=== PATIENT | female | born 1955 | race Caucasian/White ===

== ENCOUNTER 2020-07-26 13:04 | Outpatient (REF) | payer MEDICAID, SELFPAY ==
--- NOTE | 2020-07-26 13:21 | XR_ITS ---
EXAMINATION: BILATERAL HAND AND RIGHT SHOULDER. CLINICAL INFORMATION: Pain and bilateral hand. COMPARISON: None TECHNIQUE: 3 views each hand. 2 views right shoulder FINDINGS: Right hand: There is no visible fracture, dislocation or subluxation. Mild loss of PIP and DIP joint space is seen. No bony erosive changes. The soft tissues unremarkable. Left hand: There is no visible acute fracture, dislocation or subluxation is mild loss of PIP and DIP joint space. No bony erosive changes. The soft tissues are unremarkable. Right shoulder: There is mild loss of glenohumeral and AC joint space. No visible acute fracture, dislocation or loose body seen. Normal erosive changes. The lateral acromial enthesophyte. No calcifications seen. XR/XR hand RT 2V IMPRESSION: Early osteoarthritic changes involving both hands. No visible fracture or dislocation seen. Mild degenerative osteoarthritis right shoulder. No acute fracture or dislocation.
--- NOTE | 2020-07-26 13:25 | XR_ITS ---
EXAMINATION: BILATERAL HAND AND RIGHT SHOULDER. CLINICAL INFORMATION: Pain and bilateral hand. COMPARISON: None TECHNIQUE: 3 views each hand. 2 views right shoulder FINDINGS: Right hand: There is no visible fracture, dislocation or subluxation. Mild loss of PIP and DIP joint space is seen. No bony erosive changes. The soft tissues unremarkable. Left hand: There is no visible acute fracture, dislocation or subluxation is mild loss of PIP and DIP joint space. No bony erosive changes. The soft tissues are unremarkable. Right shoulder: There is mild loss of glenohumeral and AC joint space. No visible acute fracture, dislocation or loose body seen. Normal erosive changes. The lateral acromial enthesophyte. No calcifications seen. XR/XR shoulder RT min 2V IMPRESSION: Early osteoarthritic changes involving both hands. No visible fracture or dislocation seen. Mild degenerative osteoarthritis right shoulder. No acute fracture or dislocation.
--- NOTE | 2020-07-26 13:26 | XR_ITS ---
EXAMINATION: BILATERAL HAND AND RIGHT SHOULDER. CLINICAL INFORMATION: Pain and bilateral hand. COMPARISON: None TECHNIQUE: 3 views each hand. 2 views right shoulder FINDINGS: Right hand: There is no visible fracture, dislocation or subluxation. Mild loss of PIP and DIP joint space is seen. No bony erosive changes. The soft tissues unremarkable. Left hand: There is no visible acute fracture, dislocation or subluxation is mild loss of PIP and DIP joint space. No bony erosive changes. The soft tissues are unremarkable. Right shoulder: There is mild loss of glenohumeral and AC joint space. No visible acute fracture, dislocation or loose body seen. Normal erosive changes. The lateral acromial enthesophyte. No calcifications seen. XR/XR hand LT min 3V IMPRESSION: Early osteoarthritic changes involving both hands. No visible fracture or dislocation seen. Mild degenerative osteoarthritis right shoulder. No acute fracture or dislocation.
== END 2020-07-26 13:05 | disposition home or self-care (01) ==
LOC: HO.XRAY 13:04
PROVIDERS: PCP Internal Medicine Geriatric Medicine; Visit Provider Internal Medicine Geriatric Medicine
DX: M25.511 Pain in right shoulder (principal); M79.641 Pain in right hand; M79.642 Pain in left hand
CPT/HCPCS: 73030; 73120; 73130

== ENCOUNTER 2020-07-26 14:05 | Outpatient (REF) | payer MEDICAID, SELFPAY | END 2020-07-26 14:06 | disposition home or self-care (01) | LOC: HO.LAB 14:05 | PROVIDERS: PCP Internal Medicine Geriatric Medicine; Visit Provider Internal Medicine | DX: Z20.828 Contact with and (suspected) exposure to other viral communicable diseases (principal) | CPT/HCPCS: 87635 ==

== ENCOUNTER 2020-09-21 14:02 | Outpatient (REF) | payer MEDICAID, SELFPAY | END 2020-09-21 14:03 | disposition home or self-care (01) | LOC: HO.LAB 14:02 | PROVIDERS: PCP Internal Medicine Geriatric Medicine; Visit Provider Internal Medicine | DX: Z20.828 Contact with and (suspected) exposure to other viral communicable diseases (principal) | CPT/HCPCS: C9803; U0003 ==

== ENCOUNTER 2020-11-11 12:50 | Outpatient (REF) | payer MEDICAID, SELFPAY ==
--- NOTE | ~2020-11-11 | XR_ITS ---
EXAMINATION: XR SOFT TISSUE NECK XR CERVICAL SPINE XR SHOULDER, LEFT CLINICAL INFORMATION: Pain. COMPARISON: Cervical spine 07/18/2018 TECHNIQUE: Cervical spine 6 views, left shoulder 3 views, and soft tissue neck 2 views. FINDINGS: LEFT SHOULDER: There is no visible acute fracture, dislocation or subluxation. There is inferior and lateral acromial enthesophyte. The AC joint is normal. There is mild reduction of the glenohumeral joint space with slight irregular-appearing glenoid surface. The soft tissues are normal. CERVICAL SPINE: There is mild straightening of the cervical lordosis. Loss of C4-C5, C5-C6 and C6-C7 disc heights with moderate ventral spondylosis is noted. Bilateral narrowing of C4-C5, C5-C6 and C6-C7 neural foramina, slightly greater on the left, is noted. No fracture or dislocation seen. SOFT TISSUE NECK: The airway is widely patent. The prevertebral and paravertebral soft tissues are normal. No soft tissue mass seen. XR/XR shoulder LT min 2V IMPRESSION: Mild degenerative changes left shoulder joint. No visible acute fracture or dislocation. Degenerative disc changes with moderate ventral and mild posterior spondylosis C4-C5, C5-C6 and C6-C7 disc levels. There is bilateral narrowing of the neural foramina, as described above. Unremarkable soft tissue neck.
--- NOTE | ~2020-11-11 | XR_ITS ---
EXAMINATION: XR SOFT TISSUE NECK XR CERVICAL SPINE XR SHOULDER, LEFT CLINICAL INFORMATION: Pain. COMPARISON: Cervical spine 07/18/2018 TECHNIQUE: Cervical spine 6 views, left shoulder 3 views, and soft tissue neck 2 views. FINDINGS: LEFT SHOULDER: There is no visible acute fracture, dislocation or subluxation. There is inferior and lateral acromial enthesophyte. The AC joint is normal. There is mild reduction of the glenohumeral joint space with slight irregular-appearing glenoid surface. The soft tissues are normal. CERVICAL SPINE: There is mild straightening of the cervical lordosis. Loss of C4-C5, C5-C6 and C6-C7 disc heights with moderate ventral spondylosis is noted. Bilateral narrowing of C4-C5, C5-C6 and C6-C7 neural foramina, slightly greater on the left, is noted. No fracture or dislocation seen. SOFT TISSUE NECK: The airway is widely patent. The prevertebral and paravertebral soft tissues are normal. No soft tissue mass seen. XR/XR soft tissue neck IMPRESSION: Mild degenerative changes left shoulder joint. No visible acute fracture or dislocation. Degenerative disc changes with moderate ventral and mild posterior spondylosis C4-C5, C5-C6 and C6-C7 disc levels. There is bilateral narrowing of the neural foramina, as described above. Unremarkable soft tissue neck.
--- NOTE | ~2020-11-11 | XR_ITS ---
EXAMINATION: XR SOFT TISSUE NECK XR CERVICAL SPINE XR SHOULDER, LEFT CLINICAL INFORMATION: Pain. COMPARISON: Cervical spine 07/18/2018 TECHNIQUE: Cervical spine 6 views, left shoulder 3 views, and soft tissue neck 2 views. FINDINGS: LEFT SHOULDER: There is no visible acute fracture, dislocation or subluxation. There is inferior and lateral acromial enthesophyte. The AC joint is normal. There is mild reduction of the glenohumeral joint space with slight irregular-appearing glenoid surface. The soft tissues are normal. CERVICAL SPINE: There is mild straightening of the cervical lordosis. Loss of C4-C5, C5-C6 and C6-C7 disc heights with moderate ventral spondylosis is noted. Bilateral narrowing of C4-C5, C5-C6 and C6-C7 neural foramina, slightly greater on the left, is noted. No fracture or dislocation seen. SOFT TISSUE NECK: The airway is widely patent. The prevertebral and paravertebral soft tissues are normal. No soft tissue mass seen. XR/XR cervical spine 4V IMPRESSION: Mild degenerative changes left shoulder joint. No visible acute fracture or dislocation. Degenerative disc changes with moderate ventral and mild posterior spondylosis C4-C5, C5-C6 and C6-C7 disc levels. There is bilateral narrowing of the neural foramina, as described above. Unremarkable soft tissue neck.
== END 2020-11-11 12:51 | disposition home or self-care (01) ==
LOC: HO.XRAY 12:50
PROVIDERS: PCP Internal Medicine Geriatric Medicine; Visit Provider Registered Nurse
DX: M25.512 Pain in left shoulder (principal); M54.2 Cervicalgia
CPT/HCPCS: 70360; 72050; 73030

== ENCOUNTER 2020-12-08 11:20 | Outpatient (REF) | payer MEDICAID, SELFPAY ==
--- NOTE | ~2020-12-08 | MM_ITS ---
EXAMINATION: MM SCREENING DIGITAL BREAST TOMOSYNTHESIS, LEFT CLINICAL INFORMATION: Right mastectomy 2019. Left implant between 2017 and 12/23/2018. Due for yearly. COMPARISON: Outside mammography 12/23/2018, 11/08/2017 [facility], mammography 01/23/2016 TECHNIQUE: Digital mammography is performed in craniocaudal and mediolateral oblique views along with computer-aided detection (CAD). Digital breast tomosynthesis is performed in implant-displaced craniocaudal and implant-displaced mediolateral oblique views along with computer-aided detection (CAD). Synthesized 2D images are generated from the tomosynthesis. FINDINGS: There are scattered areas of fibroglandular density (ACR BI-RADS breast composition Category b). There are no significant masses, abnormal calcifications, or other abnormalities. Parenchymal pattern is similar to prior exam. The implant contours are smooth and similar to previous outside mammography. Left axillary nodes are stable. The skin contours are smooth. There are no significant changes. MM/MM tomosynthesis screen imp LT IMPRESSION: No mammographic evidence of malignancy. ASSESSMENT: BI-RADS 1: Negative RECOMMENDATION: Routine annual mammography screening. This patient's information was entered into a reminder system with a target due date for their next mammogram.
== END 2020-12-08 11:21 | disposition home or self-care (01) ==
LOC: HO.MAMMO 11:20
PROVIDERS: PCP Internal Medicine Geriatric Medicine; Visit Provider Internal Medicine Geriatric Medicine
DX: Z12.31 Encounter for screening mammogram for malignant neoplasm of breast (principal)
CPT/HCPCS: 77067

== ENCOUNTER 2021-01-05 12:42 | Outpatient (REF) | payer MEDICAID, SELFPAY ==
--- NOTE | ~2021-01-05 | MR_ITS ---
EXAMINATION: MRI LEFT SHOULDER WITHOUT CONTRAST CLINICAL INFORMATION: Left shoulder pain COMPARISON: Radiographs 11/11/2020 TECHNIQUE: MRI of the shoulder without contrast is performed on a 1.5 Helga high-field scanner. FINDINGS: ROTATOR CUFF: Supraspinatus tendinosis within insertional tear measuring 10 mm in AP dimension. The tear is predominantly along the articular surface, although there is a full-thickness component with a gap of 4 mm. No muscle atrophy or fatty infiltration. BICEPS: Normal. CORACOACROMIAL ARCH: The undersurface of the acromion is curved with mild lateral spurring and downsloping. Mild acromioclavicular osteoarthritis. Prominent fluid in the subacromial subdeltoid and subcoracoid bursa. LABRUM/CAPSULE: Normal. GLENOHUMERAL JOINT/MARROW: There is a moderate joint effusion. There is mild degenerative spurring along the greater tuberosity. ADDITIONAL FINDINGS: None. MR/MR shoulder LT wo con IMPRESSION: Supraspinatus tendinosis with insertional tearing measuring 10 mm in AP dimension, a portion of which is full-thickness with a 4 mm gap. Slight lateral downsloping of the acromion with a small lateral spur. Mild acromioclavicular and glenohumeral osteoarthritis. Moderate joint effusion and prominent fluid throughout the subacromial subdeltoid subcoracoid bursa.
== END 2021-01-05 12:43 | disposition home or self-care (01) ==
LOC: HO.MRI 12:42
PROVIDERS: Visit Provider Internal Medicine Geriatric Medicine
DX: R29.898 Other symptoms and signs involving the musculoskeletal system (principal)
CPT/HCPCS: 73221

== ENCOUNTER 2021-02-13 15:57 | Outpatient (REF) | payer MEDICAID, SELFPAY ==
--- NOTE | ~2021-02-13 | US_ITS ---
EXAMINATION: US VENOUS ULTRASOUND WITH DOPPLER LOWER EXTREMITY, LEFT CLINICAL INFORMATION: Chronic left leg swelling and pain COMPARISON: None TECHNIQUE: Ultrasound of the deep veins is performed from the hip to the calf with compression sonography and color and pulse Doppler assessment. Spectral analysis with color-flow imaging is performed. FINDINGS: There is normal venous compression and respiratory variation and augmented flow. The visualized common femoral vein, superficial femoral vein, profunda femoral vein, popliteal vein, and the trifurcation region shows no evidence of deep venous thrombosis. There is no significant popliteal fossa cyst. If the patient's symptoms persist, followup ultrasound in 5 days 7 days might be of value to exclude proximal propagation from a non-visualized calf vein. US/US venous duplex LE LT IMPRESSION: No DVT demonstrated in the left lower extremity.
== END 2021-02-13 15:58 | disposition home or self-care (01) ==
LOC: HO.US 15:57
PROVIDERS: PCP Internal Medicine Geriatric Medicine; Visit Provider Nurse Practitioner Family
DX: M79.89 Other specified soft tissue disorders (principal)
CPT/HCPCS: 93971

== ENCOUNTER 2021-09-25 12:54 | Outpatient (REF) | payer MEDICAID, SELFPAY | END 2021-09-25 12:55 | disposition home or self-care (01) | LOC: HO.LAB 12:54 | PROVIDERS: Visit Provider Internal Medicine | DX: Z20.822 Contact with and (suspected) exposure to COVID-19 (principal) | CPT/HCPCS: C9803; U0003; U0005 ==

== ENCOUNTER 2022-01-05 16:04 | Outpatient (REF) | payer MEDICAID, SELFPAY ==
--- NOTE | ~2022-01-05 | MM_ITS ---
EXAMINATION: MM SCREENING DIGITAL BREAST TOMOSYNTHESIS, LEFT CLINICAL INFORMATION: Screening. Asymptomatic. Right mastectomy 2019. Left implant between 2017 and 12/23/2018. COMPARISON: Mammography: 12/08/2020, 12/23/2018, 11/08/2017 TECHNIQUE: Digital mammography is performed in craniocaudal and mediolateral oblique views along with computer-aided detection (CAD). Digital breast tomosynthesis is performed in implant-displaced craniocaudal and implant-displaced mediolateral oblique views along with computer-aided detection (CAD). Synthesized 2D images are generated from the tomosynthesis. FINDINGS: There are scattered areas of fibroglandular density (ACR BI-RADS breast composition Category b). There are no significant masses, abnormal calcifications, or other abnormalities. Left implant contour is smooth. Parenchymal pattern is similar to prior studies. No significant changes. MM/MM tomosynthesis screen imp LT IMPRESSION: No mammographic evidence of malignancy. ASSESSMENT: BI-RADS 1: Negative RECOMMENDATION: Routine annual mammography screening. This patient's information was entered into a reminder system with a target due date for their next mammogram.
== END 2022-01-05 16:05 | disposition home or self-care (01) ==
LOC: HO.MAMMO 16:04
PROVIDERS: PCP Internal Medicine Geriatric Medicine; Visit Provider Internal Medicine Geriatric Medicine
DX: Z12.31 Encounter for screening mammogram for malignant neoplasm of breast (principal); Z90.11 Acquired absence of right breast and nipple
CPT/HCPCS: 77067

== ENCOUNTER 2022-01-09 14:29 | Outpatient (REF) | payer MEDICAID, SELFPAY ==
--- NOTE | ~2022-01-09 | XR_ITS ---
EXAMINATION: XR HAND, RIGHT XR HAND, LEFT CLINICAL INFORMATION: Other specified soft tissue disorders. COMPARISON: Right and left hand radiographs dated 07/26/2020. TECHNIQUE: AP, oblique, and lateral views of the right and left hand. FINDINGS: RIGHT HAND: Mild joint space narrowing with tiny marginal osteophytes scattered throughout the metacarpophalangeal and interphalangeal joints, slightly increased when compared to the prior examination. No osseous erosion. No fracture or dislocation. Normal carpal alignment. No abnormal soft tissue calcification. LEFT HAND: Mild joint space narrowing with tiny marginal osteophytes scattered throughout the metacarpophalangeal and interphalangeal joints, slightly increased when compared to the prior examination. No osseous erosion. No fracture or dislocation. Normal carpal alignment. No abnormal soft tissue calcification. XR/XR hand RT min 3V IMPRESSION: RIGHT HAND: Mild osteoarthritis scattered throughout the metacarpophalangeal and interphalangeal joints, slightly progressed. LEFT HAND: Mild osteoarthritis scattered throughout the metacarpophalangeal and interphalangeal joints, slightly progressed.
--- NOTE | ~2022-01-09 | XR_ITS ---
EXAMINATION: XR CHEST CLINICAL INFORMATION: Chronic cough. COMPARISON: Most recent chest radiograph dated 03/01/2017. TECHNIQUE: 2 views of the chest were obtained. FINDINGS: The lungs are clear. The cardiomediastinal silhouette is normal in size. There is no pleural effusion or pneumothorax. No acute osseous abnormality. XR/XR chest 2V IMPRESSION: No acute cardiopulmonary findings.
--- NOTE | ~2022-01-09 | XR_ITS ---
EXAMINATION: XR KNEE, RIGHT XR KNEE, LEFT CLINICAL INFORMATION: Right and left knee pain. COMPARISON: Right knee radiographs dated 12/19/2012. TECHNIQUE: AP, tunnel, lateral, and sunrise views of the right and left knee. FINDINGS: RIGHT KNEE: Mild medial compartment joint space narrowing. Tiny medial and patellofemoral compartment marginal osteophytes. No osseous erosion. No fracture or dislocation. No significant joint effusion. Enthesopathic spurring at the superior and inferior patella as well as at the tibial tuberosity. LEFT KNEE: Mild medial compartment joint space narrowing. Tiny patellofemoral compartment marginal osteophytes. No osseous erosion. No fracture or dislocation. No significant joint effusion. Inferior patellar enthesophytes. XR/XR knee LT 4V IMPRESSION: RIGHT KNEE: Mild medial and patellofemoral compartment osteoarthritis, slightly progressed when compared to the prior radiograph. LEFT KNEE: Mild medial and patellofemoral compartment osteoarthritis.
--- NOTE | ~2022-01-09 | XR_ITS ---
EXAMINATION: XR KNEE, RIGHT XR KNEE, LEFT CLINICAL INFORMATION: Right and left knee pain. COMPARISON: Right knee radiographs dated 12/19/2012. TECHNIQUE: AP, tunnel, lateral, and sunrise views of the right and left knee. FINDINGS: RIGHT KNEE: Mild medial compartment joint space narrowing. Tiny medial and patellofemoral compartment marginal osteophytes. No osseous erosion. No fracture or dislocation. No significant joint effusion. Enthesopathic spurring at the superior and inferior patella as well as at the tibial tuberosity. LEFT KNEE: Mild medial compartment joint space narrowing. Tiny patellofemoral compartment marginal osteophytes. No osseous erosion. No fracture or dislocation. No significant joint effusion. Inferior patellar enthesophytes. XR/XR knee RT 4V IMPRESSION: RIGHT KNEE: Mild medial and patellofemoral compartment osteoarthritis, slightly progressed when compared to the prior radiograph. LEFT KNEE: Mild medial and patellofemoral compartment osteoarthritis.
--- NOTE | ~2022-01-09 | XR_ITS ---
EXAMINATION: XR HAND, RIGHT XR HAND, LEFT CLINICAL INFORMATION: Other specified soft tissue disorders. COMPARISON: Right and left hand radiographs dated 07/26/2020. TECHNIQUE: AP, oblique, and lateral views of the right and left hand. FINDINGS: RIGHT HAND: Mild joint space narrowing with tiny marginal osteophytes scattered throughout the metacarpophalangeal and interphalangeal joints, slightly increased when compared to the prior examination. No osseous erosion. No fracture or dislocation. Normal carpal alignment. No abnormal soft tissue calcification. LEFT HAND: Mild joint space narrowing with tiny marginal osteophytes scattered throughout the metacarpophalangeal and interphalangeal joints, slightly increased when compared to the prior examination. No osseous erosion. No fracture or dislocation. Normal carpal alignment. No abnormal soft tissue calcification. XR/XR hand LT min 3V IMPRESSION: RIGHT HAND: Mild osteoarthritis scattered throughout the metacarpophalangeal and interphalangeal joints, slightly progressed. LEFT HAND: Mild osteoarthritis scattered throughout the metacarpophalangeal and interphalangeal joints, slightly progressed.
[2022-01-09 16:52] LABS: Alanine Aminotransferase 20 U/L (0-31); Albumin Level 4.4 g/dL (3.5-5.0); Alkaline Phosphatase 78 U/L (39-117); Anion Gap 12 (12-20); Aspartate Amino Transferase 16 U/L (5-31); Bilirubin Total 0.7 mg/dL (0.0-1.0); Blood Urea Nitrogen 19 mg/dL (9-16); Calcium 9.9 mg/dL (8.4-10.2); Carbon Dioxide 28 mmol/L (22-29); Chloride 103 mmol/L (96-108); Estimated Glomerular Filt Rate > 60; Glucose Random 90 mg/dL (60-115); Potassium 4.1 mmol/L (3.3-5.1); Sodium 139 mmol/L (135-145); Total Protein 7.7 g/dL (6.5-8.0)
== END 2022-01-09 14:30 | disposition home or self-care (01) ==
LOC: HO.LAB 14:29
PROVIDERS: PCP Internal Medicine Geriatric Medicine; Visit Provider Internal Medicine Geriatric Medicine
DX: M25.561 Pain in right knee (principal); M25.562 Pain in left knee; M79.89 Other specified soft tissue disorders; R05.3 Chronic cough; R79.82 Elevated C-reactive protein (CRP)
CPT/HCPCS: 36415; 71046; 73130; 73564; 80053

== ENCOUNTER 2022-05-11 15:38 | Outpatient (REF) | payer MEDICAID, SELFPAY ==
--- NOTE | ~2022-05-11 | XR_ITS ---
EXAMINATION: XR SHOULDER, RIGHT CLINICAL INFORMATION: Pain COMPARISON: Previous x-ray June 2020 TECHNIQUE: AP external rotation, Grashey, scapular Y, and axillary views of the right shoulder. FINDINGS: Bone alignment is normal. No fracture or dislocation is seen. The glenohumeral joint is normal. There is arthritis at the acromioclavicular joint. There is an undersurface acromial osteophyte. XR/XR shoulder RT min 2V IMPRESSION: Arthritis at the acromioclavicular joint and undersurface acromial osteophyte.
== END 2022-05-11 15:39 | disposition home or self-care (01) ==
LOC: HO.XRAY 15:38
PROVIDERS: PCP Internal Medicine Geriatric Medicine; Visit Provider Internal Medicine Geriatric Medicine
DX: M25.511 Pain in right shoulder (principal)
CPT/HCPCS: 73030

== ENCOUNTER 2023-02-18 14:26 | Outpatient (REF) | payer OTHER, SELFPAY | END 2023-02-18 14:27 | disposition home or self-care (01) | LOC: HO.MAMMO 14:26 | PROVIDERS: PCP Internal Medicine Geriatric Medicine; Visit Provider Internal Medicine Geriatric Medicine | DX: Z13.89 Encounter for screening for other disorder (principal) ==

== ENCOUNTER → 2023-03-21 14:05 | Outpatient (BNVA) | payer OTHER, SELFPAY | PROVIDERS: Visit Provider Physician Assistant | DX: Z01.818 Encounter for other preprocedural examination (principal) | CPT/HCPCS: 99202 ==

== ENCOUNTER 2023-03-23 10:18 | Outpatient (REF) | payer OTHER, SELFPAY ==
--- NOTE | ~2023-03-23 | MM_ITS ---
EXAMINATION: MM SCREENING DIGITAL BREAST TOMOSYNTHESIS, LEFT CLINICAL INFORMATION: Right mastectomy 2019. Due for yearly left breast. COMPARISON: Mammography: 01/05/2022, 12/08/2020, 12/23/2018 TECHNIQUE: Digital mammography is performed in craniocaudal and mediolateral oblique views along with computer-aided detection (CAD). Digital breast tomosynthesis is performed in implant-displaced craniocaudal and implant-displaced mediolateral oblique views along with computer-aided detection (CAD). Synthesized 2D images are generated from the tomosynthesis. FINDINGS: There are scattered areas of fibroglandular density (ACR BI-RADS breast composition Category b). Breast implant is smooth in contour and similar to prior exams. The parenchymal pattern shows no significant changes. No developing density or architectural abnormality. No abnormal calcifications. The left axillary nodes are stable. The skin contours are smooth. MM/MM tomosynthesis screen imp LT IMPRESSION: There are no significant changes from prior study. ASSESSMENT: BI-RADS 2: Benign RECOMMENDATION: Routine annual mammography screening. This patient's information was entered into a reminder system with a target due date for their next mammogram.
== END 2023-03-23 10:19 | disposition home or self-care (01) ==
LOC: HO.MAMMO 10:18
PROVIDERS: PCP Internal Medicine Geriatric Medicine; Visit Provider Internal Medicine Geriatric Medicine
DX: Z12.31 Encounter for screening mammogram for malignant neoplasm of breast (principal)
CPT/HCPCS: 77067

== ENCOUNTER 2023-05-29 08:59 | Outpatient (REF) | payer OTHER, SELFPAY ==
[2023-05-29 11:30] LABS: MANUAL DIFF FLAG NO
[2023-05-29 11:53] LABS: Basophils Absolute Auto 0.1 X10*3/uL (0.0-0.2); Basophils Percent Auto 0.8 % (0-2); Eosinophils Absolute Auto 0.1 X10*3/uL (0.0-0.4); Eosinophils Percent Auto 1.9 % (0-4); Hematocrit 40.7 % (37.0-47.0); Hemoglobin 13.5 g/dl (12.0-16.0); Imm Gran Abs Auto 0.01 X10*3/uL (0.00-0.03); Imm Gran Pct Auto 0.2 % (0.0-0.4); Lymphocytes Absolute Auto 2.3 X10*3/uL (1.2-4.9); Lymphocytes Percent Auto 36.7 % (20-40); Mean Corpuscular HGB Conc 33.2 g/dl (31.0-35.0); Mean Corpuscular Hemoglobin 29.6 pg (27.0-33.0); Mean Corpuscular Volume 89.3 fL (80.0-98.0); Mean Platelet Volume 11.4 fL (9.4-12.3); Monocytes Absolute Auto 0.5 X10*3/uL (0.1-1.2); Monocytes Percent Auto 7.7 % (2-11); Neutrophils Absolute Auto 3.3 x10*3/uL (2.0-8.3); Neutrophils Percent Auto 52.7 % (45-73); Platelet Count 281 X10*3/uL (160-400); Red Blood Count 4.56 X10*6/uL (4.20-5.50); Red Cell Distribution Width 13.4 % (11.0-16.0); White Blood Count 6.3 X10*3/uL (4.8-10.8)
[2023-05-29 11:57] LABS: Estimated Average Glucose 105 mg/dL; Hemoglobin A1c % 5.3 % (<6.0)
[2023-05-29 12:11] LABS: Alanine Aminotransferase 16 U/L (0-31); Alkaline Phosphatase 58 U/L (39-117); Anion Gap 9 (12-20); Aspartate Amino Transferase 14 U/L (5-31); Bilirubin Total 0.5 mg/dL (0.0-1.0); Blood Urea Nitrogen 15 mg/dL (9-16); Calcium 9.5 mg/dL (8.4-10.2); Carbon Dioxide 28 mmol/L (22-29); Chloride 107 mmol/L (96-108); Cholesterol 215 mg/dL (<200); Estimated Glomerular Filt Rate > 60; Glucose Random 96 mg/dL (60-115); HDL Cholesterol 43 mg/dL (>40); LDL Cholesterol Calculated 131 mg/dL (<100); Sodium 140 mmol/L (135-145); Total Protein 6.9 g/dL (6.5-8.0); Triglycerides 207 mg/dL (<150)
[2023-05-29 12:26] LABS: Syphilis Screen Nonreactive (Nonreactive)
[2023-05-29 12:32] LABS: Free T4 (Free Thyroxine) 0.76 ng/dL (0.71-1.85); Thyroid Stimulating Hormone 2.25 uIU/mL (0.32-4.0)
== END 2023-05-29 09:00 | disposition home or self-care (01) ==
LOC: HO.HHCL 08:59
PROVIDERS: Visit Provider Psychiatry & Neurology Psychiatry
DX: F31.32 Bipolar disorder, current episode depressed, moderate (principal); Z79.899 Other long term (current) drug therapy
CPT/HCPCS: 36415; 80053; 80061; 83036; 84146; 84439; 84443; 85025; 86780

== ENCOUNTER 2023-06-20 09:03 | Day surgery (SDC) | payer OTHER, SELFPAY ==
[2023-06-18 15:25] VITALS: BMI 24.6
--- NOTE | 2023-06-19 12:04 | HO.ANESPROP2 ---
Documented by User: Lisa Hernández NP 06/19/23 12:05 HPI - Anesthesia Eval Consult details Narrative: 67yo F for Colonoscopy PMFSH Active Problems Active Problems: All Active Problems (Updated 06/18/23 @ 15:21 by Maribel Rosa RN) Breast calcification, right (Acute) HTN (hypertension) (Acute) Encounter for screening colonoscopy (Acute) Past Medical History Medical History (Updated 06/18/23 @ 15:21 by Maribel Rosa RN) Venous insufficiency Ductal carcinoma in situ (DCIS) of right breast HTN (hypertension) Surgical History Surgical History (Updated 06/18/23 @ 15:21 by Maribel Rosa RN) Hx of hysterectomy Hx of right mastectomy Social History Social History Household Members: None Alcohol intake: current Alcohol intake frequency: holidays/special occasions only Patient Tobacco Use Status: Never used Tobacco Advance Directives: No Advance Directives Information Provided: Yes Meds Allergies Allergy/AdvReac Type Severity Reaction Status Date / Time cat dander [CAT] Allergy Intermediate EYES SWELL Verified 03/21/23 14:10 UP, CAUSES ASTHMA TO ACT UP dog dander [DOG] Allergy Intermediate EYES Verified 03/21/23 14:10 SWELL, CAUSES ASTHMA TO ACT UP Horse/Equine Containing Allergy Intermediate EYES Verified 03/21/23 14:10 Products SWELL, [HORSE/EQUINE CONTAINING ASTHMA PRODUCTS] EXACERBATION pollen extracts [POLLEN] Allergy Intermediate CAUSED Verified 03/21/23 14:10 ASTHMA TO ACT UP DUST Allergy Intermediate EYES Uncoded 06/16/20 16:47 SWELL, CAUSES ASTHMA TO ACT UP Home Medications Medication Instructions Recorded Confirmed Last Taken Type ketotifen fumarate 0.025 % (0.035 0 drp ophthalmic (eye) 03/21/23 03/21/23 Unknown History %) eye drops loratadine 10 mg tablet 10 mg PO DAILY 03/21/23 06/18/23 Unknown History metoprolol succinate 100 mg 100 mg PO QAM 03/21/23 06/18/23 Unknown History tablet,extended release 24 hr multivitamin with folic acid 400 1 tab PO DAILY 03/21/23 06/18/23 Unknown History mcg tablet (Daily-Brendan (with folic acid)) atorvastatin 20 mg tablet 20 mg PO DAILY 06/18/23 06/18/23 Unknown History chlorthalidone 25 mg tablet 12.5 mg PO QAM 06/18/23 06/18/23 Unknown History Exam Exam Date and Time: June 19, 2023 1204 Height,Weight and Vital Signs: Height 5 ft 3 in Weight 63.049 kg Assessment and Plan Assessment Anesthesia Assessment: Chart Reviewed Documented by User: Rubin Burns MD 06/20/23 11:09 [facility] Past Medical History Medical History (Updated 06/18/23 @ 15:21 by Maribel Rosa RN) Venous insufficiency Ductal carcinoma in situ (DCIS) of right breast HTN (hypertension) Family History Family history of problems with anesthesia: No Surgical History Surgical History (Updated 06/18/23 @ 15:21 by Maribel Rosa RN) Hx of hysterectomy Hx of right mastectomy History of Problems with Anesthesia: No Social History Social History Household Members: None Alcohol intake: current Alcohol intake frequency: holidays/special occasions only Patient Tobacco Use Status: Never used Tobacco Advance Directives: No Advance Directives Information Provided: Yes Meds Allergies Allergy/AdvReac Type Severity Reaction Status Date / Time cat dander [CAT] Allergy Intermediate EYES SWELL Verified 03/21/23 14:10 UP, CAUSES ASTHMA TO ACT UP dog dander [DOG] Allergy Intermediate EYES Verified 03/21/23 14:10 SWELL, CAUSES ASTHMA TO ACT UP Horse/Equine Containing Allergy Intermediate EYES Verified 03/21/23 14:10 Products SWELL, [HORSE/EQUINE CONTAINING ASTHMA PRODUCTS] EXACERBATION pollen extracts [POLLEN] Allergy Intermediate CAUSED Verified 03/21/23 14:10 ASTHMA TO ACT UP DUST Allergy Intermediate EYES Uncoded 06/16/20 16:47 SWELL, CAUSES ASTHMA TO ACT UP Home Medications Medication Instructions Recorded Confirmed Last Taken Type ketotifen fumarate 0.025 % (0.035 0 drp ophthalmic (eye) 03/21/23 03/21/23 Unknown History %) eye drops loratadine 10 mg tablet 10 mg PO DAILY 03/21/23 06/18/23 Unknown History metoprolol succinate 100 mg 100 mg PO QAM 03/21/23 06/18/23 Unknown History tablet,extended release 24 hr multivitamin with folic acid 400 1 tab PO DAILY 03/21/23 06/18/23 Unknown History mcg tablet (Daily-Brendan (with folic acid)) atorvastatin 20 mg tablet 20 mg PO DAILY 06/18/23 06/18/23 Unknown History chlorthalidone 25 mg tablet 12.5 mg PO QAM 06/18/23 06/18/23 Unknown History Exam Airway Mallampati Class: II TM Dist: >3cm Neck ROM: Full Denture: Upper Heart: rrr Lungs: cta Assessment and Plan Assessment Anesthesia Assessment: Anesthesia Plan Discussed Final Anesthetic Review Family History of Problems with Anesthesia: No History of Problems with Anesthesia: No NPO: Yes ASA Class: II Final Preanesthetic Review: No Changes in Pt Med Stat, Meds/Allgs Chart Reviewed and Anes Risks/Benef Reviewed Patient Risk: Low Procedure Risk: Low Anesthetic Plan Anesthetic Plan: MAC: and Agree w/ Assess. and Plan Disposition: Standard PACU
--- NOTE | 2023-06-20 09:51 | PC.NURSE ---
no blood pressure/venipuncture Right side (right side masectomy)
[2023-06-20 09:52] VITALS: BP 154/82; PULSE 62; RESP 16; TEMP 36; O2SAT 98; BMI 24.4
--- NOTE | 2023-06-20 11:16 | MHC.SHP ---
Pre-Procedural Eval Section A Date of Service: 06/20/23 Section B Chief Complaint: screening Relevant Family History (Specify if Yes): No Relevant Social History: None Present Medications: see Short Stay Collaborative assessment Medical History: Significant History (Venous insufficiency Ductal carcinoma in situ (DCIS) of right breast HTN (hypertension)) History of Previous Operations: Relevant previous surgery/procedure and date(s) (Hx of hysterectomy Hx of right mastectomy) Allergies: Allergies Allergy/AdvReac Type Severity Reaction Status Date / Time cat dander [CAT] Allergy Intermediate EYES SWELL Verified 03/21/23 14:10 UP, CAUSES ASTHMA TO ACT UP dog dander [DOG] Allergy Intermediate EYES Verified 03/21/23 14:10 SWELL, CAUSES ASTHMA TO ACT UP Horse/Equine Containing Allergy Intermediate EYES Verified 03/21/23 14:10 Products SWELL, [HORSE/EQUINE CONTAINING ASTHMA PRODUCTS] EXACERBATION pollen extracts [POLLEN] Allergy Intermediate CAUSED Verified 03/21/23 14:10 ASTHMA TO ACT UP DUST Allergy Intermediate EYES Uncoded 06/16/20 16:47 SWELL, CAUSES ASTHMA TO ACT UP Review of Systems Sugical H&P ROS: Negative: Constitution, Cardiovascular, Respiratory, Neurological, Psychiatric, Hem-Onc, Allergic/Immunologic, Gastrointestinal, Genitourinary, Musculoskeletal, Integumentary, Endocrine and Eyes/Ears/Nose/Throat Exam Surgical H&P Exam: Normal: HEENT, Normal: Heart, Normal: Lungs, Normal: Extremities, Normal: Abdomen, Normal: Skin and Normal: Neurological Plan Diagnosis/Plan: Unchanged I have reviewed the history and physical and performed a pertinent physical examination on my patient. No changes have occurred unless specified. Time Spent With Patient Time: Total time managing care of this patient today ____ minutes.
--- NOTE | 2023-06-20 11:41 | P.OP_ITS ---
Operative Note Operative Note Date of Service: 06/20/23 Narrative: Operative Information Procedure Description: Colonoscopy Indication: screening Anesthesia: MAC COLONOSCOPY Instrument: Olympus variable stiffness pediatric scope 190L Colonoscopy Monitoring: Vital signs and clinical assessment, continuous EKG monitoring, Pulse oximetry, Carbon Dioxide monitoring and blood pressure monitoring were done throughout the procedure. Colon withdrawal time was 14 minutes. Procedure: The patient was placed in the left lateral decubitis position and pre-procedure medications were administered. After a digital rectal examination of the ano-rectum, the video colonoscope was inserted into the rectum and advanced through the colon to the cecum/TI. The colonoscope was slowly withdrawn in a retrograde panoramic fashion and the colon mucosa was carefully examined including a retroflexed view of the rectum. Findings and interventions are described below. Procedure Difficulty: easy Findings: Terminal Ileum-normal Right sided retroflexion normal Cecum:normal Ascending Colon: normal Transverse Colon -normal Descending Colon: 8-10 mm sessile polyp removed with cold snare and x 1 clip applied for hemostasis Sigmoid Colon: severe diverticulosis with luminal hypertrophy and narrowing, 10- 12 mm sessile polyp removed with cold snare Rectum: Retroflexion with small internal hemorrhoids, grade I with skin tag, 10 mm sessile polyp removed with cold snare Anorectum - normal Colon preparation: [place] Bowel Preparation Scale Right colon; 2 Transverse colon: 2 Left colon; 3 (0 = Unprepared colon segment with mucosa not seen due to solid stool that cannot be cleared. 1 = Portion of mucosa of the colon segment seen, but other areas of the colon segment not well seen due to staining, residual stool and/or opaque liquid. 2 = Minor amount of residual staining, small fragments of stool and/or opaque liquid, but mucosa of colon segment seen well. 3 = Entire mucosa of colon segment seen well with no residual staining, small fragments of stool or opaque liquid) Impression and Post Procedure Diagnosis: polyps internal hemorrhoids diverticular disease Plan: High fiber diet leaflet Avoid straining at stool, epsom salts and sitz bath, anusol supps or cream Repeat Colonoscopy in 3-4 years or earlier if clinically indicated Above findings were reviewed with the patient and relevant handouts were provided if indicated.
[2023-06-20 11:53] VITALS: BP 136/79; PULSE 65; RESP 13; TEMP 37.1; O2SAT 99
[2023-06-20 12:09] VITALS: BP 146/73; PULSE 65; RESP 16; TEMP 36.1; O2SAT 97
== END 2023-06-20 12:50 | disposition home or self-care (01) ==
PROVIDERS: PCP Internal Medicine Geriatric Medicine; Visit Provider Internal Medicine Gastroenterology
PROC: 0DJD8ZZ Inspection of Lower Intestinal Tract, Via Natural or Artificial Opening Endoscopic (ICD-10-PCS; CPT 45378; principal; 2023-06-20 10:30)
DX: Z12.11 Encounter for screening for malignant neoplasm of colon (principal); D12.4 Benign neoplasm of descending colon; D12.5 Benign neoplasm of sigmoid colon; D12.8 Benign neoplasm of rectum; K57.30 Diverticulosis of large intestine without perforation or abscess without bleeding; K64.0 First degree hemorrhoids; K64.4 Residual hemorrhoidal skin tags; I10 Essential (primary) hypertension; I87.2 Venous insufficiency (chronic) (peripheral); Z85.3 Personal history of malignant neoplasm of breast; Z90.11 Acquired absence of right breast and nipple; Z79.899 Other long term (current) drug therapy
CPT/HCPCS: 45385; 88305

== ENCOUNTER → 2023-06-20 09:03 | Outpatient (BNV) | payer OTHER, SELFPAY | PROVIDERS: PCP Internal Medicine Geriatric Medicine; Visit Provider Internal Medicine Gastroenterology | DX: Z12.11 Encounter for screening for malignant neoplasm of colon (principal); D12.4 Benign neoplasm of descending colon; D12.5 Benign neoplasm of sigmoid colon; D12.8 Benign neoplasm of rectum; K64.0 First degree hemorrhoids; K57.30 Diverticulosis of large intestine without perforation or abscess without bleeding | CPT/HCPCS: 45385 ==

== ENCOUNTER 2023-07-04 08:58 | Outpatient (AMB) | payer OTHER, SELFPAY ==
--- NOTE | 2023-07-04 09:00 | MHC.OFFVIS ---
Intake Vital Signs 07/04/23 09:02 Height 5 ft 3 in Weight 136 lb 10.986 oz BMI 24.2 BP 170/92 H Blood Pressure Location Lt brachial Position Sitting Pulse 70 Intake Visit Reasons: S/p colon- Stearns Intake Note: Catherine presents in the office as a follow up colonoscopy. CC: She states that she is not having any concerns since her procedure. Managed Care Manager Required: Yes Managed Care Manager Name: Jadyn [id number] Allergies cat dander [CAT] Allergy (Intermediate, Verified 07/04/23 09:03) EYES SWELL UP, CAUSES ASTHMA TO ACT UP dog dander [DOG] Allergy (Intermediate, Verified 07/04/23 09:03) EYES SWELL, CAUSES ASTHMA TO ACT UP Horse/Equine Containing Products [HORSE/EQUINE CONTAINING PRODUCTS] Allergy (Intermediate, Verified 07/04/23 09:03) EYES SWELL, ASTHMA EXACERBATION pollen extracts [POLLEN] Allergy (Intermediate, Verified 07/04/23 09:03) CAUSED ASTHMA TO ACT UP DUST Allergy (Intermediate, Uncoded 07/04/23 09:03) EYES SWELL, CAUSES ASTHMA TO ACT UP Medication List - Last Reconciled 07/04/23 by Genet Mendoza PA-C aripiprazole 2 mg PO DAILY atorvastatin 20 mg PO DAILY chlorthalidone 12.5 mg PO QAM gabapentin 100 mg PO TID ketotifen fumarate 0.025%(0.035%) 0 drps ophthalmic (eye) liothyronine 25 mcg PO DAILY loratadine 10 mg PO DAILY metoprolol succinate ER 100 mg PO QAM mirtazapine 15 mg PO BEDTIME multivitamin with folic acid 400 mcg (Daily-Brendan (with folic acid)) 1 tab PO DAILY HPI HPI Comments History of Present Illness Details A 68-year-old female follows up after recent index colonoscopy with polypectomy. Tolerated well- she feels a mild discomfort in the rectum when she is constipated- resolves after BM- Hemorrhoids at times uncomfortable-declined surgical consult Reviewed procedure report, pathology as well as recommendations BP elevated- she says it happens when she gets nervous has not taken daily meds No TREVIÑO, dizziness, CP or sob PFSH Medical History (Updated 07/04/23 @ 09:21 by Genet Mendoza PA-C) Venous insufficiency Ductal carcinoma in situ (DCIS) of right breast HTN (hypertension) Surgical History (Updated 06/25/23 @ 15:00 by Maira Morales) Hx of colonoscopy Hx of hysterectomy Hx of right mastectomy Social History Household Members: None Alcohol intake: current Alcohol intake frequency: holidays/special occasions only Patient Tobacco Use Status: Never used Tobacco Review of Systems Const All systems reviewed & are unremarkable except as noted in HPI and below Card Denies chest pain and Denies dyspnea Resp Denies dyspnea GI Denies abdominal pain, Denies hematochezia, Reports constipation, Denies GI cramping, Denies nausea and Denies vomiting Physical Exam Vital Signs: Last Vital Signs Pulse 70 07/04/23 09:02 BP 170/92 H 07/04/23 09:02 BMI result Body Mass Index 24.2 Const General: cooperative, healthy appearing, comfortable and no acute distress Orientation/consciousness: No patient oriented x3 Limitations: language barrier Resp Effort & Inspection: normal respiratory effort and able to speak in complete sentences Auscultation: clear to auscultation bilaterally, no rales, no rhonchi and no wheezes Cardio Rate: regular rate Rhythm: regular rhythm Heart sounds: S1 normal heart sound present and S2 normal heart sound present GI Palpation (GI): Soft to palpation and nontender Auscultation: normal bowel sounds Neuro General: No patient oriented x3 Extrem General: Yes full ROM Psych Appearance: well kempt Mental Status: mental status grossly normal Speech and movement: Clear speech present Affect: normal affect Attitude: cooperative Thought content: Normal thought content present Insight: Good insight present (Psych) Judgement: Good judgement present (Psych) Results Reviewed Results Reviewed: Impression and Post Procedure Diagnosis: polyps internal hemorrhoids diverticular disease Plan: High fiber diet leaflet Avoid straining at stool, epsom salts and sitz bath, anusol supps or cream Repeat Colonoscopy in 3-4 years or earlier if clinically indicated Name: Catherine Larry Shirley Age/Sex: 67/F Attending: Javi Stearns MD : 1955 Submitted by: Javi Stearns MD Copies to: Olrando Biswas MD MR #: [id number] Status: [facility] Collected: 06/20/23 Location: [facility] Received: 06/20/23 Diagnosis A. Colon, descending polypectomy: Tubular adenoma; negative for high-grade dysplasia. B. Colon, sigmoid, polypectomy: Tubular adenoma; negative for high-grade dysplasia. C. Rectum, polypectomy: Tubular adenoma, multiple fragments; negative for high-grade dysplasia. Clinical History Pre-Op Dx: Screening Post-Op Dx: Colon polyps, diverticulosis, hemorrhoids Assessment & Plan Assessment & Plan (1) Tubular adenoma: Code(s): D36.9 - Benign neoplasm, unspecified site Plan: 3 year repeat colonoscopy (2) Diverticulosis of colon: Comment: severe diverticulosis with luminal hypertrophy and narrowing, no hx diverticulitis- she has made dietary modifications Code(s): K57.30 - Diverticulosis of large intestine without perforation or abscess without bleeding Plan: High-fiber diet Foods to avoid ER protocol (3) Hemorrhoids: Code(s): K64.9 - Unspecified hemorrhoids Plan: High-fiber diet Avoid straining Plan 3 year repeat colonoscopy High-fiber diet Foods to avoid ER protocol Avoid straining Declines surgical consult Medications: New methylcellulose (laxative) (Citrucel) 500 mg PO TID 90 tabs 5RF docusate sodium (Colace) 200 mg (2 x 100 mg) PO BEDTIME 60 caps 5RF hydrocortisone 2.5% (Proctosol HC) 1 appl OR BEDTIME PRN 30 grams 3RF hemorrhoids 30 days polyethylene glycol 3350 (Miralax) 17 grams PO DAILY PRN 510 grams 6RF constipation hydrocortisone 2.5% (Proctosol HC) 1 appl OR BEDTIME PRN 30 grams 3RF hemorrhoids Patient Instructions: Take medications when gets home 3 year repeat colonoscopy High-fiber diet Foods to avoid ER protocol Avoid straining Encouraged to call with questions or concerns Coding Level of Care Code Est Pt Level 3 (64748) Diagnoses Tubular adenoma D36.9 Diverticulosis of colon K57.30 Hemorrhoids K64.9 Time Spent (min) 30 Comment [id number]
[2023-07-04 09:02] VITALS: BP 170/92; PULSE 70; BMI 24.2
== END 2023-07-04 10:24 | disposition home or self-care (01) ==
PROVIDERS: PCP Internal Medicine Geriatric Medicine; Visit Provider Physician Assistant
DX: D36.9 Benign neoplasm, unspecified site (principal); K57.30 Diverticulosis of large intestine without perforation or abscess without bleeding; K64.9 Unspecified hemorrhoids
CPT/HCPCS: 99213

== ENCOUNTER → 2023-07-04 08:58 | Outpatient (BNVA) | payer OTHER, SELFPAY | PROVIDERS: PCP Internal Medicine Geriatric Medicine; Visit Provider Physician Assistant | DX: D36.9 Benign neoplasm, unspecified site (principal); K57.30 Diverticulosis of large intestine without perforation or abscess without bleeding; K64.9 Unspecified hemorrhoids | CPT/HCPCS: 99212 ==

== ENCOUNTER 2023-07-10 14:47 | Outpatient (REF) | payer OTHER, SELFPAY ==
[2023-07-10 17:33] LABS: TSH reflex Free T4 0.43 uIU/mL (0.32-4.0)
== END 2023-07-10 14:48 | disposition home or self-care (01) ==
LOC: HO.HHCL 14:47
PROVIDERS: Visit Provider Internal Medicine Geriatric Medicine
DX: E03.9 Hypothyroidism, unspecified (principal)
CPT/HCPCS: 36415; 84443

== ENCOUNTER 2023-07-23 11:21 | Outpatient (REF) | payer OTHER, SELFPAY ==
[2023-07-23 14:17] LABS: Alanine Aminotransferase 16 U/L (0-31); Albumin Level 4.3 g/dL (3.5-5.0); Alkaline Phosphatase 67 U/L (39-117); Anion Gap 14 (12-20); Aspartate Amino Transferase 16 U/L (5-31); Bilirubin Total 0.6 mg/dL (0.0-1.0); Blood Urea Nitrogen 14 mg/dL (9-16); Calcium 9.3 mg/dL (8.4-10.2); Carbon Dioxide 26 mmol/L (22-29); Chloride 105 mmol/L (96-108); Cholesterol 159 mg/dL (<200); Estimated Glomerular Filt Rate > 60; Glucose Random 103 mg/dL (60-115); HDL Cholesterol 42 mg/dL (>40); LDL Cholesterol Calculated 88 mg/dL (<100); Potassium 3.8 mmol/L (3.3-5.1); Sodium 141 mmol/L (135-145); Total Protein 7.5 g/dL (6.5-8.0); Triglycerides 148 mg/dL (<150)
== END 2023-07-23 11:22 | disposition home or self-care (01) ==
LOC: HO.HHCL 11:21
PROVIDERS: Visit Provider Internal Medicine Geriatric Medicine
DX: E03.9 Hypothyroidism, unspecified (principal); E78.00 Pure hypercholesterolemia, unspecified
CPT/HCPCS: 36415; 80053; 80061

== ENCOUNTER 2023-08-07 14:00 | Outpatient (RCR) | payer OTHER, SELFPAY | END 2023-08-08 10:36 | disposition home or self-care (01) | LOC: HO.PT 14:00 | PROVIDERS: PCP Internal Medicine Geriatric Medicine; Visit Provider Internal Medicine Geriatric Medicine | DX: M54.50 Low back pain, unspecified (principal); G89.29 Other chronic pain | CPT/HCPCS: 97110; 97140; 97161; 97530; 97535 ==

== ENCOUNTER 2024-02-18 13:28 | Outpatient (AMB) | payer OTHER, SELFPAY ==
[2024-02-18 13:36] VITALS: BMI 24.1
--- NOTE | 2024-02-18 13:36 | MHC.OFFVIS ---
Vital Signs 02/18/24 13:36 02/18/24 13:50 Height 5 ft 3 in 5 ft 3 in Weight 136 lb 136 lb BMI 24.1 24.1 Intake Visit Reasons: [facility] referral; Intake Note: CHEMISTRY QUALITY CONTROL TECHNICIAN/ PCP referral for VV bilateral LE, Right LE worse than Left per pt. also states itching and pain Catheterization Laboratory Technician Required: Yes Catheterization Laboratory Technician Language: Glassware Selector Name: Raysa [id number] Accompanied by: Self / Same As Patient Allergies cat dander [CAT] Allergy (Intermediate, Verified 02/18/24 13:55) EYES SWELL UP, CAUSES ASTHMA TO ACT UP dog dander [DOG] Allergy (Intermediate, Verified 02/18/24 13:55) EYES SWELL, CAUSES ASTHMA TO ACT UP Horse/Equine Containing Products [HORSE/EQUINE CONTAINING PRODUCTS] Allergy (Intermediate, Verified 02/18/24 13:55) EYES SWELL, ASTHMA EXACERBATION pollen extracts [POLLEN] Allergy (Intermediate, Verified 02/18/24 13:55) CAUSED ASTHMA TO ACT UP DUST Allergy (Intermediate, Uncoded 02/18/24 13:55) EYES SWELL, CAUSES ASTHMA TO ACT UP HPI HPI HHC referral; : Details: Pleasant 68-year-old patient presents for painful varicose veins. Complaints include pain over varicosities, swelling of lower extremities, cramping, fatigue, and heaviness of the lower extremities. The biggest complaint she has is itching of the legs It has been affecting there daily activities including walking. It is noted more so in right leg. Patient denies any previous venous surgery or injections. Patient denies any history of DVT/ PE. Patient denies any history of phlebitis. Trial of compression includes - [id number] They now present for vascular evaluation regarding their varicose veins. [facility] Medical History Venous insufficiency Ductal carcinoma in situ (DCIS) of right breast HTN (hypertension) Surgical History Hx of colonoscopy Hx of hysterectomy Hx of right mastectomy Social History Household Members: None Alcohol intake: current Alcohol intake frequency: holidays/special occasions only Patient Tobacco Use Status: Never used Tobacco Review of Systems Const Reports as per HPI ENT Reports no additional complaints Card Denies chest pain, Denies chest pain at rest and Denies chest pain with activity Resp Denies chest congestion and Denies cough GI Reports no additional complaints Musc Details: pain over varicosities, aching of lower extremities, swelling, cramping, heaviness and tiredness, itching Denies abnormal gait Skin/Breast Reports pruritus and Denies wounds Neuro Reports no additional complaints and Denies abnormal gait Psych Denies no additional complaints Physical Exam Vital Signs: BMI result Body Mass Index 24.1 Const General: cooperative, healthy appearing and comfortable Orientation/consciousness: oriented to person, oriented to place and oriented to time Neck Carotids: no bruits Chest Chest palpation & inspection: normal inspection of the chest and normal palpation of entire chest wall Resp Effort & Inspection: normal respiratory effort and able to speak in complete sentences Cardio Rate: regular rate Heart sounds: S1 normal heart sound present and S2 normal heart sound present Peripheral pulses: Peripheral pulses 2+ throughout GI Inspection: Yes normal to inspection Skin Other: +2 edema, excoriated areas on the calf along with skin discoloration CEAP Classification C4 - skin color changes Ep - Etiology Primary As - superficial veins P - reflux General skin exam: dry skin Neuro General: oriented to person, oriented to place and oriented to time Extrem Right lower extremity: full ROM, normal capillary refill and edema Left lower extremity: full ROM, normal capillary refill and edema Psych Mental Status: mental status grossly normal Assessment & Plan Assessment & Plan (1) Varicose veins of right lower extremity with inflammation: Code(s): I83.11 - Varicose veins of right lower extremity with inflammation Category: Medical Plan: In short, the patient has evidence of venous insufficiency. I have discussed the pathophysiology with the patient. In addition I have provided informational material regarding venous disease to the patient. We have discussed conservative measures including compression, elevation, and exercise. I have also provided a handout regarding appropriate use of compression stockings and where to purchase good compression stockings as well. I have taken the liberty of ordering venous insufficiency testing with the patient. They will follow up with me after testing. The patient had an opportunity to ask questions regarding the treatment plan. All questions were answered. Imaging studies, laboratory studies and physical exam results were discussed and reviewed in detail. No major barriers to understanding were identified. The patient expressed understanding and agreement with the above treatment plan. The patient is aware they should contact our office by phone for worsening of the current condition or the appearance of new symptoms. Thank you for allowing me to participate in the vascular care of this patient. If you have any questions or concerns regarding the treatment for the above condition please do not hesitate to contact me. The office telephone contact is [phone]. This note is constructed using voice recognition software. While every effort has been made to ensure accuracy, heel packer errors may have been included. Thank you for allowing me to participate in the care of your patient. Yours sincerely, Demetrio Ibrahim MD, FACS, R.P.V.I. Orders: Orders US venous duplex LE BI 1 Week I83.11 - Varicose veins of right lower extremity with inflammation Coding Level of Care Code New Pt Level 4 (65345) Diagnoses Varicose veins of right lower extremity with inflammation I83.11
[2024-02-18 13:50] VITALS: BMI 24.1
== END 2024-02-18 14:26 | disposition home or self-care (01) ==
PROVIDERS: PCP Internal Medicine Geriatric Medicine; Visit Provider Surgery Vascular Surgery
DX: I83.11 Varicose veins of right lower extremity with inflammation (principal)
CPT/HCPCS: 99203

== ENCOUNTER → 2024-02-18 13:28 | Outpatient (BNVA) | payer OTHER, SELFPAY | PROVIDERS: PCP Internal Medicine Geriatric Medicine; Visit Provider Surgery Vascular Surgery | DX: I83.11 Varicose veins of right lower extremity with inflammation (principal) | CPT/HCPCS: 99202 ==

== ENCOUNTER 2024-03-30 12:35 | Outpatient (REF) | payer OTHER, SELFPAY ==
--- NOTE | ~2024-03-30 | US_ITS ---
EXAMINATION: US LOWER EXTREMITY VENOUS (REFLUX EXAM), BILATERAL CLINICAL INDICATION: Varicose veins of the right lower extremity with inflammation COMPARISON: Venous duplex of the left lower extremity dated 02/13/2021 TECHNIQUE: Color flow triplex imaging and compression Doppler was performed to evaluate both the deep and the superficial systems bilaterally. To evaluate the superficial system, the examination was performed in the upright position. Color-flow Doppler ultrasound and compression ultrasound were utilized. In addition, maneuvers were utilized to demonstrate reflux. FINDINGS: 1. DEEP VENOUS ULTRASOUND OF THE RIGHT LOWER EXTREMITY: Common Femoral Vein: Compressible, normal respiratory variation and augmented flow. Femoral Vein: Compressible, normal color flow and augmentation. Popliteal Vein: Compressible, normal augmentation. Deep Reflux: There is no evidence of reflux in the deep system in either the common femoral vein, superficial femoral or the popliteal vein. There is no evidence of a Rowley's cyst. 2. SUPERFICIAL ULTRASOUND WITH DOPPLER OF RIGHT LOWER EXTREMITY: GREAT SAPHENOUS VEIN: Saphenofemoral Junction: 0.6 cm; Reflux: 0 ms Proximal Thigh: 0.4 cm; Reflux: 0 ms Mid Thigh: 0.4 cm; Reflux: 0 ms Above Knee: 0.4 cm; Reflux: 0 ms At Knee: 0.4 cm; Reflux: 0 ms Below Knee: 0.3 cm; Reflux: 0 ms Mid Calf: 0.2 cm; Reflux: 0 ms Ankle: 0.3 cm; Reflux: 0 ms DUPLICATED MEDIAL GREAT SAPHENOUS VEIN: Saphenofemoral Junction: 0.4 cm; Reflux: 0 ms SMALL SAPHENOUS VEIN: Saphenopopliteal Junction: 0.3 cm; Reflux: 0 ms Proximal: 0.2 cm; Reflux: 0 ms Distal: 0.3 cm; Reflux: 0 ms PERFORATORS: Location: Mid calf Size: 0.2; Reflux: 0 ms VARICOSITIES: Multiple varicosities less than 3 mm visualized. 3. DEEP VENOUS ULTRASOUND OF THE LEFT LOWER EXTREMITY: Common Femoral Vein: Compressible, normal respiratory variation and augmented flow. Femoral Vein: Compressible, normal color flow and augmentation. Popliteal Vein: Compressible, normal augmentation. Deep Reflux: There is no evidence of reflux in the deep system in either the common femoral vein, superficial femoral or the popliteal vein. There is no evidence of a Rowley's cyst. 4. SUPERFICIAL ULTRASOUND WITH DOPPLER OF LEFT LOWER EXTREMITY: GREAT SAPHENOUS VEIN: Saphenofemoral Junction: 0.8 cm; Reflux: 0 ms Proximal Thigh: 0.4 cm; Reflux: 0 ms Mid Thigh: 0.1 cm; Reflux: 0 ms Above Knee: 0.1 cm; Reflux: 0 ms At Knee: Not visualized Below Knee: 0.2 cm; Reflux: 0 ms Mid Calf: 0.3 cm; Reflux: 0 ms Ankle: 0.2 cm; Reflux: 0 ms SMALL SAPHENOUS VEIN: Saphenopopliteal Junction: 0.2 cm; Reflux: 0 ms Proximal: 0.3 cm; Reflux: 0 ms Distal: 0.2 cm; Reflux: 0 ms PERFORATORS: Location: Mid calf Size: 0.1; Reflux: 0 ms VARICOSITIES: Location: None Imaged Size: NA; Reflux: 0 ms US/US venous duplex LE BI IMPRESSION: 1. No evidence of deep venous thrombosis or reflux. 2. Competent right great saphenous vein and right small saphenous vein. However, there are multiple small varicose veins originating from the great saphenous vein that are less than 3 mm in size and were not evaluated for reflux. There is a small girl friday in the mid calf that is competent. 3. No significant venous insufficiency of the left lower extremity, with competent left great saphenous vein and small saphenous vein. There is a small girl friday in the mid calf that is competent. No varicose veins are visualized.
== END 2024-03-30 12:36 | disposition home or self-care (01) ==
LOC: HO.US 12:35
PROVIDERS: PCP Internal Medicine Geriatric Medicine; Visit Provider Surgery Vascular Surgery
DX: I83.11 Varicose veins of right lower extremity with inflammation (principal)
CPT/HCPCS: 93970

== ENCOUNTER 2024-04-14 12:32 | Outpatient (REF) | payer OTHER, SELFPAY ==
--- NOTE | ~2024-04-14 | MM_ITS ---
EXAMINATION: MM SCREENING DIGITAL BREAST TOMOSYNTHESIS, BILATERAL CLINICAL INFORMATION: Screening. Asymptomatic. The patient is status post right mastectomy. COMPARISON: Mammography: This study is compared with prior mammograms dating back to 2018. TECHNIQUE: Digital mammography is performed in craniocaudal and mediolateral oblique views along with computer-aided detection (CAD). Digital breast tomosynthesis is performed in implant-displaced craniocaudal and implant-displaced mediolateral oblique views along with computer-aided detection (CAD). Synthesized 2D images are generated from the tomosynthesis. FINDINGS: There are scattered areas of fibroglandular density (ACR BI-RADS breast composition Category b). There are no significant masses, abnormal calcifications, or other abnormalities. There is a mammographically intact, retropectoral silicone breast implant. MM/MM tomosynthesis screen imp LT IMPRESSION: There are no significant changes from prior study. ASSESSMENT: BI-RADS BI-RADS 1 - Negative RECOMMENDATION: Routine annual mammography screening. 1 year F/U This patient's information was entered into a reminder system with a target due date for their next mammogram.
== END 2024-04-14 12:33 | disposition home or self-care (01) ==
LOC: HO.MAMMO 12:32
PROVIDERS: PCP Internal Medicine Geriatric Medicine; Visit Provider Internal Medicine Geriatric Medicine
DX: Z12.31 Encounter for screening mammogram for malignant neoplasm of breast (principal); Z90.11 Acquired absence of right breast and nipple
CPT/HCPCS: 77067

== ENCOUNTER → 2024-04-14 12:45 | Outpatient (BNV) | payer OTHER, SELFPAY | PROVIDERS: PCP Internal Medicine Geriatric Medicine; Visit Provider Radiology Diagnostic Radiology | DX: Z12.31 Encounter for screening mammogram for malignant neoplasm of breast (principal) | CPT/HCPCS: 77063; 77067 ==

== ENCOUNTER 2024-05-07 12:54 | Outpatient (AMB) | payer OTHER, SELFPAY ==
--- NOTE | 2024-05-07 13:02 | MHC.OFFVIS ---
Intake Visit Reasons: follow up s/p 03/30/24 Intake Note: Patient presents for US follow up. Ultrasound done on 03/30/24. She states she has left leg pain. She has right knee pain and what appears to be spider veins. Allergies cat dander [CAT] Allergy (Intermediate, Verified 05/07/24 13:04) EYES SWELL UP, CAUSES ASTHMA TO ACT UP dog dander [DOG] Allergy (Intermediate, Verified 05/07/24 13:04) EYES SWELL, CAUSES ASTHMA TO ACT UP Horse/Equine Containing Products [HORSE/EQUINE CONTAINING PRODUCTS] Allergy (Intermediate, Verified 05/07/24 13:04) EYES SWELL, ASTHMA EXACERBATION pollen extracts [POLLEN] Allergy (Intermediate, Verified 05/07/24 13:04) CAUSED ASTHMA TO ACT UP DUST Allergy (Intermediate, Uncoded 02/18/24 13:55) EYES SWELL, CAUSES ASTHMA TO ACT UP HPI HPI follow up s/p [facility] 03/30/24: Details: Very pleasant 68-year-old female presents for follow-up regarding venous insufficiency. She has multiple varicosities which are mostly spider telangiectasias throughout the thigh. Of note she has some swelling and itchiness. She now presents for follow-up evaluation. [facility] Medical History Venous insufficiency Ductal carcinoma in situ (DCIS) of right breast HTN (hypertension) Surgical History Hx of colonoscopy Hx of hysterectomy Hx of right mastectomy Social History Household Members: None Alcohol intake: current Alcohol intake frequency: holidays/special occasions only Patient Tobacco Use Status: Never used Tobacco Review of Systems Const All systems reviewed & are unremarkable except as noted in HPI and below Reports no additional complaints ENT Reports Normal hearing present Card Denies chest pain, Denies chest pain at rest, Denies chest pain with activity and Denies pedal edema Resp Denies cough GI Denies abdominal pain Musc Denies abnormal gait, Denies muscle cramps and Denies radiating pain into limb Skin/Breast Denies skin ulcer and Denies wounds Neuro Reports Normal hearing present and Denies abnormal gait Psych Reports no additional complaints Physical Exam Const General: cooperative, healthy appearing and comfortable Orientation/consciousness: oriented to person, oriented to place and oriented to time HEENT Head: Yes normal to inspection Neck Neck: Yes normal visual inspection Carotids: no bruits Chest Chest palpation & inspection: normal inspection of the chest Resp Effort & Inspection: normal respiratory effort and able to speak in complete sentences Auscultation: clear to auscultation bilaterally, no crackles, no rales, no rhonchi and no wheezes Cardio Rate: regular rate Rhythm: regular rhythm Heart sounds: S1 normal heart sound present and S2 normal heart sound present Bruits: no carotid bruits Peripheral pulses: Peripheral pulses 2+ throughout GI Inspection: Yes normal to inspection Skin Wounds: no wounds Hair: normal Neuro General: oriented to person, oriented to place and oriented to time Cranial nerves: Yes CN's II-XII intact bilaterally and Yes Normal hearing present Cognition (Neuro): normal cognition Motor exam (neuro): 5/5 motor strength present throughout Extrem Other: venous exam: +1 edema General: No clubbing, No cyanosis and No edema Psych Appearance: grossly normal Mental Status: mental status grossly normal Speech and movement: Normal speech and movement present Results Reviewed Results Reviewed: Brief summary of venous insufficiency testing is as follows: right great saphenous vein: negative right small saphenous vein: negative right accessory vein: none present left great saphenous vein: negative left small saphenous vein: negative left accessory vein: none present Please note there is no evidence of any venous aneurysms or significant tortuosity Assessment & Plan Assessment & Plan (1) Varicose veins of right lower extremity with inflammation: Code(s): I83.11 - Varicose veins of right lower extremity with inflammation Category: Medical Plan: In short patient is negative for any significant venous insufficiency. Her biggest concern at the current time is spider telangiectasias which would be more cosmetic in nature. We did provider information regarding other places that may provide the services. At the current time would only recommend conservative measures including compression elevation and exercise. She will follow up with us on an as-needed basis. Thank you for allowing us to assist in her care. Coding Level of Care Code Est Pt Level 4 (91347) Diagnoses Varicose veins of right lower extremity with inflammation I83.11
== END 2024-05-07 13:49 | disposition home or self-care (01) ==
PROVIDERS: PCP Internal Medicine Geriatric Medicine; Visit Provider Surgery Vascular Surgery
DX: I83.11 Varicose veins of right lower extremity with inflammation (principal)
CPT/HCPCS: 99214

== ENCOUNTER → 2024-05-07 12:54 | Outpatient (BNVA) | payer OTHER, SELFPAY | PROVIDERS: PCP Internal Medicine Geriatric Medicine; Visit Provider Surgery Vascular Surgery | DX: I83.11 Varicose veins of right lower extremity with inflammation (principal) | CPT/HCPCS: 99212 ==

== ENCOUNTER 2024-06-10 11:44 | Outpatient (REF) | payer OTHER, SELFPAY ==
[2024-06-10 13:45] LABS: MANUAL DIFF FLAG NO
[2024-06-10 14:07] LABS: Basophils Percent Auto 0.7 % (0-2); Eosinophils Absolute Auto 0.1 X10*3/uL (0.0-0.4); Eosinophils Percent Auto 1.2 % (0-4); Hematocrit 41.6 % (37.0-47.0); Imm Gran Abs Auto 0.01 X10*3/uL (0.00-0.03); Imm Gran Pct Auto 0.2 % (0.0-0.4); Lymphocytes Absolute Auto 1.9 X10*3/uL (1.2-4.9); Mean Corpuscular HGB Conc 33.7 g/dl (31.0-35.0); Mean Corpuscular Hemoglobin 30.1 pg (27.0-33.0); Mean Corpuscular Volume 89.5 fL (80.0-98.0); Mean Platelet Volume 11.3 fL (9.4-12.3); Monocytes Absolute Auto 0.4 X10*3/uL (0.1-1.2); Monocytes Percent Auto 6.7 % (2-11); Neutrophils Absolute Auto 3.2 x10*3/uL (2.0-8.3); Neutrophils Percent Auto 57.2 % (45-73); Platelet Count 273 X10*3/uL (160-400); Red Blood Count 4.65 X10*6/uL (4.20-5.50); Red Cell Distribution Width 13.8 % (11.0-16.0); White Blood Count 5.6 X10*3/uL (4.8-10.8)
[2024-06-10 14:38] LABS: Anion Gap 14 (12-20); Blood Urea Nitrogen 13 mg/dL (9-16); Calcium 9.8 mg/dL (8.4-10.2); Carbon Dioxide 25 mmol/L (22-29); Chloride 106 mmol/L (96-108); Estimated Glomerular Filt Rate > 60; Glucose Random 96 mg/dL (60-115); Potassium 4.2 mmol/L (3.3-5.1); Sodium 141 mmol/L (135-145)
[2024-06-11 05:00] LABS: ~HepC Num1 0.12 S/CO (0.00-0.79); ~Hepatitis C Antibody Nonreactive (Nonreactive)
== END 2024-06-10 11:45 | disposition home or self-care (01) ==
LOC: HO.HHCL 11:44
PROVIDERS: Visit Provider Internal Medicine Geriatric Medicine
DX: I10 Essential (primary) hypertension (principal); Z11.59 Encounter for screening for other viral diseases; R13.10 Dysphagia, unspecified
CPT/HCPCS: 36415; 80048; 85025; 86803

== ENCOUNTER 2024-06-22 19:37 | Outpatient (REF) | payer OTHER, SELFPAY | END 2024-06-22 19:38 | disposition home or self-care (01) | LOC: HO.HHCLNP 19:37 | PROVIDERS: Visit Provider Emergency Medicine | DX: R68.89 Other general symptoms and signs (principal) | CPT/HCPCS: 87070 ==

== ENCOUNTER 2024-06-30 13:25 | Outpatient (AMB) | payer OTHER, SELFPAY ==
[2024-06-30 13:32] VITALS: BP 144/62; PULSE 67; O2SAT 98; BMI 23.7
--- NOTE | 2024-06-30 13:32 | A.OFFVIS_ITS ---
Vital Signs 06/30/24 13:32 Height 5 ft 3 in Weight 134 lb BMI 23.7 BP 144/62 H Blood Pressure Location Rt brachial Position Sitting Pulse 67 Pulse Source Doppler Pulse Oximetry (%) 98 Oxygen Delivery Method Room Air Intake Visit Reasons: shortness of breath/copd Processing Technologist Required: Yes Processing Technologist Name: Yanira Salguero Jaswinder.[email or web address] Allergies cat dander [CAT] Allergy (Intermediate, Verified 06/30/24 13:36) EYES SWELL UP, CAUSES ASTHMA TO ACT UP dog dander [DOG] Allergy (Intermediate, Verified 06/30/24 13:36) EYES SWELL, CAUSES ASTHMA TO ACT UP Horse/Equine Containing Products [HORSE/EQUINE CONTAINING PRODUCTS] Allergy (Intermediate, Verified 06/30/24 13:36) EYES SWELL, ASTHMA EXACERBATION pollen extracts [POLLEN] Allergy (Intermediate, Verified 06/30/24 13:36) CAUSED ASTHMA TO ACT UP DUST Allergy (Intermediate, Uncoded 02/18/24 13:55) EYES SWELL, CAUSES ASTHMA TO ACT UP HPI HPI shortness of breath/copd: Details: 69-year-old lady, nonsmoker, with underlying history of asthma with suboptimal control on Arnuity and albuterol MDI presents for evaluation. Patient is complaining of cor neck nonproductive cough particularly at night with suboptimal response to antibiotics and only moderate response to p.o. prednisone. She does complain of significant environmental allergies. She denies family history of lung disease. She has been employed with no exposure to industrial dusts. [facility] Medical History Venous insufficiency Ductal carcinoma in situ (DCIS) of right breast HTN (hypertension) Surgical History Hx of colonoscopy Hx of hysterectomy Hx of right mastectomy Social History Household Members: None Alcohol intake: current Alcohol intake frequency: holidays/special occasions only Patient Tobacco Use Status: Never used Tobacco Review of Systems Const Denies daytime sleepiness, Denies excessive sweating, Denies fatigue, Denies fever(s), Denies lethargy, Denies malaise, Denies night sweats, Denies snoring and Denies weight loss Eyes Denies blurry vision and Denies itchy eyes ENT Denies nasal congestion, Denies post nasal drip, Denies sinus pain, Denies sinus pressure and Denies other ( Thrush) Card Denies chest pain, Denies pedal edema, Denies dyspnea, Denies orthopnea and Denies paroxysmal nocturnal dyspnea Resp Reports cough, Denies hemoptysis, Denies excessive phlegm production, Denies dyspnea, Denies snoring and Denies wheezing GI Denies abdominal pain and Denies heartburn Musc Denies myalgias, Denies arthralgias and Denies joint swelling Skin/Breast Denies rash Neuro Denies memory loss and Denies seizure-like activity Psych Denies abnormal sleep pattern, Denies anxiety and Denies memory loss Endo Denies excessive sweating, Denies fatigue and Denies heat intolerance Williams/Lymph Denies easy bruising Aller/Immun Denies itchy eyes, Denies seasonal rhinorrhea and Denies wheezing Physical Exam Vital Signs: Last Vital Signs Pulse 67 06/30/24 13:32 BP 144/62 H 06/30/24 13:32 Pulse Ox 98 06/30/24 13:32 Oxygen Delivery Method Room Air 06/30/24 13:32 BMI result Body Mass Index 23.7 Const General: no acute distress and alert Nutritional Appearance: not obese Orientation/consciousness: Other orientation findings ( oriented) HEENT Head: Yes atraumatic Eyes General: appearance normal, both eyes and all related structures Sclerae: sclerae normal EOM: EOMs intact bilaterally Neck Neck: Yes supple Lymphatic: no lymphadenopathy noted Resp Effort & Inspection: normal respiratory effort and no use of accessory muscles Auscultation: clear to auscultation bilaterally Cardio Rate: regular rate Rhythm: regular rhythm Heart sounds: no gallops, no murmurs and no rubs Skin General skin exam: other ( warm) Extrem General: No clubbing, No cyanosis and No edema Assessment & Plan Assessment & Plan (1) Asthma: Code(s): J45.909 - Unspecified asthma, uncomplicated Category: Medical Plan: Underlying asthma, at least moderate persistent, suboptimally controlled on Arnuity, will switch to Breo and Airsupra. Will obtain full PFT. (2) Environmental allergies: Code(s): Z91.09 - Other allergy status, other than to drugs and biological substances Category: Medical Plan: Will obtain IgE level, CBC with differential, and RAST panel for further evaluation. Orders: Orders Resp Allergy Profile Region I Today Z91.09 - Other allergy status, other than to drugs and biological substances PFT pulmonary function test Today J45.909 - Unspecified asthma, uncomplicated Complete Blood Count Auto Diff Today Z. - Other allergy status, other than to drugs and biological substances Medications: New albuterol-budesonide 90-80 mcg/actuation (Airsupra) 2 inhalations inhalation TID PRN 1 ea 3RF shortness of breath J45.909 - Unspecified asthma, uncomplicated fluticasone furoate-vilanterol 200-25 mcg/dose (Breo Ellipta) 1 inh inhalation DAILY 60 ea 6RF J45.909 - Unspecified asthma, uncomplicated Coding Level of Care Code New Pt Level 4 (69184) Diagnoses Asthma J45.909 Environmental allergies Z.
== END 2024-06-30 14:00 | disposition home or self-care (01) ==
PROVIDERS: PCP Internal Medicine Geriatric Medicine; Visit Provider Internal Medicine Pulmonary Disease
DX: J45.909 Unspecified asthma, uncomplicated (principal); Z91.09 Other allergy status, other than to drugs and biological substances
CPT/HCPCS: 99204

== ENCOUNTER → 2024-06-30 13:25 | Outpatient (BNVA) | payer OTHER, SELFPAY | PROVIDERS: PCP Internal Medicine Geriatric Medicine; Visit Provider Internal Medicine Pulmonary Disease | DX: J45.909 Unspecified asthma, uncomplicated (principal); Z91.09 Other allergy status, other than to drugs and biological substances | CPT/HCPCS: 99202 ==

== ENCOUNTER 2024-07-02 13:09 | Outpatient (REF) | payer OTHER, SELFPAY ==
[2024-07-02 13:30] LABS: MANUAL DIFF FLAG NO
[2024-07-02 14:12] LABS: Basophils Absolute Auto 0.1 X10*3/uL (0.0-0.2); Basophils Percent Auto 0.7 % (0-2); Eosinophils Absolute Auto 0.1 X10*3/uL (0.0-0.4); Eosinophils Percent Auto 1.2 % (0-4); Hematocrit 41.9 % (37.0-47.0); Hemoglobin 13.8 g/dl (12.0-16.0); Imm Gran Abs Auto 0.04 X10*3/uL (0.00-0.03); Imm Gran Pct Auto 0.4 % (0.0-0.4); Lymphocytes Absolute Auto 2.7 X10*3/uL (1.2-4.9); Lymphocytes Percent Auto 28.9 % (20-40); Mean Corpuscular HGB Conc 32.9 g/dl (31.0-35.0); Mean Corpuscular Hemoglobin 29.3 pg (27.0-33.0); Mean Platelet Volume 10.7 fL (9.4-12.3); Monocytes Absolute Auto 0.6 X10*3/uL (0.1-1.2); Monocytes Percent Auto 5.8 % (2-11); Neutrophils Absolute Auto 5.9 x10*3/uL (2.0-8.3); Platelet Count 310 X10*3/uL (160-400); Red Blood Count 4.71 X10*6/uL (4.20-5.50); Red Cell Distribution Width 13.7 % (11.0-16.0); White Blood Count 9.4 X10*3/uL (4.8-10.8)
[2024-07-06 14:24] LABS: Class Alternaria alternata 0; Class Aspergillus fumigatus 0; Class Bermuda Grass 0; Class Birch 3; Class Cat Dander 0; Class Cladosporium herbarum 0; Class Cockroach 0; Class Common Ragweed 0; Class Cottonwood 0; Class Derm. pterony 0; Class Dermatophagoides farinae 0; Class Dog Dander 3; Class Elm 0; Class Maple Box Elder 1; Class Mountain Cedar 0; Class Mouse Urine Protein 0; Class Mugwort 0; Class Oak 2; Class Penicillium crysogenum 0; Class Rough Pigweed 0; Class Sheep Sorrel 0; Class Sycamore 0; Class Timothy Grass 0; Class Walnut Tree 0; Class White Ash 0; Class White Mulberry 0; D001 IgE D pteronyssinus <0.10 kU/L; D002 - IgE D farinae <0.10 kU/L; E001 - IgE Cat Dander <0.10 kU/L; E072-IgE Mouse Urine <0.10 kU/L; G002 IgE Bermuda Grass <0.10 kU/L; G006 - IgE Timothy Grass <0.10 kU/L; I006-IgE Cockroach, German <0.10 kU/L; Immunoglobulin E 60 kU/L (<OR=114); M001 IgE Penicillium chrysogen <0.10 kU/L; M002 - IgE Cladosporium herbar <0.10 kU/L; M003 - IgE Aspergillus fumigat <0.10 kU/L; M006 - IgE Alternaria alternat <0.10 kU/L; T001 IgE Maple/Box Elder 0.41 kU/L; T006 - IgE Cedar, Mountain <0.10 kU/L; T007 - IgE Oak, White 1.68 kU/L; T008 IgE Elm, American <0.10 kU/L; T010 - IgE Walnut <0.10 kU/L; T011 - IgE Maple Leaf Sycamore <0.10 kU/L; T014 - IgE Cottonwood <0.10 kU/L; T015 - IgE Ash, White <0.10 kU/L; T070 - IgE White Mulberry <0.10 kU/L; W001 - IgE Ragweed, Short <0.10 kU/L; W006 - IgE Mugwort <0.10 kU/L; W014 IgE Pigweed, Common <0.10 kU/L; W018 IgE Sheep Sorrel <0.10 kU/L
== END 2024-07-02 13:10 | disposition home or self-care (01) ==
LOC: HO.LAB 13:09
PROVIDERS: PCP Internal Medicine Geriatric Medicine; Visit Provider Internal Medicine Pulmonary Disease
DX: Z91.09 Other allergy status, other than to drugs and biological substances (principal)
CPT/HCPCS: 36415; 82785; 85025; 86003

== ENCOUNTER 2024-07-31 10:57 | Outpatient (REF) | payer OTHER, SELFPAY ==
[2024-07-31 09:24] VITALS: PULSE 65; RESP 16; O2SAT 98
--- NOTE | 2024-07-31 11:00 | PFT_ITS ---
Indication asthma Spirometry [FEV1 to FVC 76%; FEV1 1.59 L; FVC 2.09 L. No significant response to bronchodilators noted. To note the FEF 02/16/2075 down to 55% predicted. Maximum voluntary ventilation 77% predicted] Lung Volumes [Total lung capacity 75% predicted] Diffusion Capacity [DLCO corrected for hemoglobin 88% predicted] Comparisons [None] Interpretation [No definitive obstructive ventilatory defects although this was slight concavity to the expiratory limb suggesting an obstructive physiology specially with her small airways disease. This may be his wishes for asthma. Although no significant response to bronchodilators noted. The patient does have a mild decrease in maximum voluntary ventilation secondary to likely deconditioning although can not rule out neuromuscular conditions. The patient also has a mild restrictive ventilatory defect of unclear etiology. Diffusing capacity is within normal limits. Clinical correlation warranted.] MTDD
== END 2024-07-31 10:58 | disposition home or self-care (01) ==
LOC: HO.RESP 10:57
PROVIDERS: PCP Internal Medicine Geriatric Medicine; Visit Provider Internal Medicine Pulmonary Disease
DX: J45.909 Unspecified asthma, uncomplicated (principal)
CPT/HCPCS: 94010; 94640; 94727; 94729

== ENCOUNTER → 2024-07-31 11:00 | Outpatient (BNV) | payer OTHER, SELFPAY | PROVIDERS: PCP Internal Medicine Geriatric Medicine; Visit Provider Hospitalist | DX: J45.909 Unspecified asthma, uncomplicated (principal) | CPT/HCPCS: 94060; 94727; 94729 ==

== ENCOUNTER 2024-08-05 13:34 | Outpatient (AMB) | payer OTHER, SELFPAY ==
[2024-08-05 13:39] VITALS: BP 134/62; PULSE 59; O2SAT 99; BMI 23.6
--- NOTE | 2024-08-05 13:39 | A.OFFVIS_ITS ---
Vital Signs 08/05/24 13:39 Height 5 ft 3 in Weight 133 lb 6.075 oz BMI 23.6 BP 134/62 Pulse 59 Pulse Source Doppler Pulse Oximetry (%) 99 Oxygen Delivery Method Room Air Intake Visit Reasons: COPD Wrapper Leaf Inspector Required: Yes Wrapper Leaf Inspector Name: Yanira Salguero Anjelica Allergies cat dander [CAT] Allergy (Intermediate, Verified 08/05/24 13:43) EYES SWELL UP, CAUSES ASTHMA TO ACT UP dog dander [DOG] Allergy (Intermediate, Verified 08/05/24 13:43) EYES SWELL, CAUSES ASTHMA TO ACT UP Horse/Equine Containing Products [HORSE/EQUINE CONTAINING PRODUCTS] Allergy (Intermediate, Verified 08/05/24 13:43) EYES SWELL, ASTHMA EXACERBATION pollen extracts [POLLEN] Allergy (Intermediate, Verified 08/05/24 13:43) CAUSED ASTHMA TO ACT UP DUST Allergy (Intermediate, Uncoded 02/18/24 13:55) EYES SWELL, CAUSES ASTHMA TO ACT UP HPI HPI COPD: Details: 69-year-old lady, nonsmoker, with underlying history of asthma with suboptimal control on Arnuity and albuterol MDI presents for evaluation. Patient is complaining of cor neck nonproductive cough particularly at night with suboptimal response to antibiotics and only moderate response to p.o. prednisone. She does complain of significant environmental allergies. She denies family history of lung disease. She has been employed with no exposure to industrial dusts. After the last office visit patient was started on Breo and air supra with significantly improved symptom control. She has completed her immunologic workup that shows significant allergic component to her symptoms. She denies acute exacerbations. [facility] Medical History Venous insufficiency Ductal carcinoma in situ (DCIS) of right breast HTN (hypertension) Surgical History Hx of colonoscopy Hx of hysterectomy Hx of right mastectomy Social History Household Members: None Alcohol intake: current Alcohol intake frequency: holidays/special occasions only Patient Tobacco Use Status: Never used Tobacco Review of Systems Const Denies daytime sleepiness, Denies excessive sweating, Denies fatigue, Denies fever(s), Denies lethargy, Denies malaise, Denies night sweats, Denies snoring and Denies weight loss Eyes Denies blurry vision and Denies itchy eyes ENT Denies nasal congestion, Denies post nasal drip, Denies sinus pain, Denies sinus pressure and Denies other ( Thrush) Card Denies chest pain, Denies pedal edema, Denies dyspnea, Denies orthopnea and Denies paroxysmal nocturnal dyspnea Resp Denies cough, Denies hemoptysis, Denies excessive phlegm production, Denies dyspnea, Denies snoring and Denies wheezing GI Denies abdominal pain and Denies heartburn Musc Denies myalgias, Denies arthralgias and Denies joint swelling Skin/Breast Denies rash Neuro Denies memory loss and Denies seizure-like activity Psych Denies abnormal sleep pattern, Denies anxiety and Denies memory loss Endo Denies excessive sweating, Denies fatigue and Denies heat intolerance Williams/Lymph Denies easy bruising Aller/Immun Denies itchy eyes, Denies seasonal rhinorrhea and Denies wheezing Physical Exam Vital Signs: Last Vital Signs Pulse 59 08/05/24 13:39 BP 134/62 08/05/24 13:39 Pulse Ox 99 08/05/24 13:39 Oxygen Delivery Method Room Air 08/05/24 13:39 BMI result Body Mass Index 23.6 Const General: no acute distress and alert Nutritional Appearance: not obese Orientation/consciousness: Other orientation findings ( oriented) HEENT Head: Yes atraumatic Eyes General: appearance normal, both eyes and all related structures Sclerae: sclerae normal EOM: EOMs intact bilaterally Neck Neck: Yes supple Lymphatic: no lymphadenopathy noted Resp Effort & Inspection: normal respiratory effort and no use of accessory muscles Auscultation: clear to auscultation bilaterally Cardio Rate: regular rate Rhythm: regular rhythm Heart sounds: no gallops, no murmurs and no rubs Skin General skin exam: other ( warm) Extrem General: No clubbing, No cyanosis and No edema Assessment & Plan Assessment & Plan (1) Asthma: Code(s): J45.909 - Unspecified asthma, uncomplicated Category: Medical Plan: Well controlled on Breo and air supra. Continue current regimen. (2) Environmental allergies: Code(s): Z91.09 - Other allergy status, other than to drugs and biological substances Category: Medical Plan: Results of immunologic studies reviewed, does have significant environmental allergies component. Continue Flonase. If stops being controlled on inhaled corticosteroid, will consider Xolair therapy. Coding Level of Care Code Est Pt Level 4 (68417) Diagnoses Asthma J45.909 Environmental allergies Z91.09
== END 2024-08-05 14:01 | disposition home or self-care (01) ==
LOC: HO.HPS 13:35
PROVIDERS: PCP Internal Medicine Geriatric Medicine; Visit Provider Internal Medicine Pulmonary Disease
DX: J45.909 Unspecified asthma, uncomplicated (principal); Z91.09 Other allergy status, other than to drugs and biological substances
CPT/HCPCS: 99214

== ENCOUNTER → 2024-08-05 13:34 | Outpatient (BNVA) | payer OTHER, SELFPAY | PROVIDERS: PCP Internal Medicine Geriatric Medicine; Visit Provider Internal Medicine Pulmonary Disease | DX: J45.909 Unspecified asthma, uncomplicated (principal); Z91.09 Other allergy status, other than to drugs and biological substances | CPT/HCPCS: 99212 ==

== ENCOUNTER 2024-08-13 13:17 | Outpatient (REF) | payer OTHER, SELFPAY ==
[2024-08-13 16:13] LABS: MANUAL DIFF FLAG NO
[2024-08-13 16:21] LABS: Basophils Absolute Auto 0.1 X10*3/uL (0.0-0.2); Basophils Percent Auto 0.8 % (0-2); Eosinophils Absolute Auto 0.1 X10*3/uL (0.0-0.4); Eosinophils Percent Auto 1.6 % (0-4); Hematocrit 40.6 % (37.0-47.0); Hemoglobin 13.5 g/dl (12.0-16.0); Imm Gran Abs Auto 0.02 X10*3/uL (0.00-0.03); Imm Gran Pct Auto 0.3 % (0.0-0.4); Lymphocytes Absolute Auto 2.5 X10*3/uL (1.2-4.9); Lymphocytes Percent Auto 35.8 % (20-40); Mean Corpuscular HGB Conc 33.3 g/dl (31.0-35.0); Mean Corpuscular Hemoglobin 29.4 pg (27.0-33.0); Mean Corpuscular Volume 88.5 fL (80.0-98.0); Mean Platelet Volume 11.6 fL (9.4-12.3); Monocytes Absolute Auto 0.6 X10*3/uL (0.1-1.2); Monocytes Percent Auto 8.2 % (2-11); Neutrophils Absolute Auto 3.8 x10*3/uL (2.0-8.3); Neutrophils Percent Auto 53.3 % (45-73); Platelet Count 265 X10*3/uL (160-400); Red Blood Count 4.59 X10*6/uL (4.20-5.50); Red Cell Distribution Width 13.8 % (11.0-16.0); White Blood Count 7.1 X10*3/uL (4.8-10.8)
[2024-08-13 18:24] LABS: Alanine Aminotransferase 18 U/L (0-31); Albumin Level 4.3 g/dL (3.5-5.0); Alkaline Phosphatase 68 U/L (39-117); Anion Gap 12 (12-20); Aspartate Amino Transferase 21 U/L (5-31); Bilirubin Total 0.4 mg/dL (0.0-1.0); Blood Urea Nitrogen 17 mg/dL (9-16); Calcium 9.4 mg/dL (8.4-10.2); Carbon Dioxide 28 mmol/L (22-29); Chloride 104 mmol/L (96-108); Estimated Glomerular Filt Rate 57; Glucose Random 82 mg/dL (60-115); Sodium 140 mmol/L (135-145); Total Protein 7.7 g/dL (6.5-8.0)
== END 2024-08-13 13:18 | disposition home or self-care (01) ==
LOC: HO.HHCL 13:17
PROVIDERS: Visit Provider Internal Medicine Geriatric Medicine
DX: R10.11 Right upper quadrant pain (principal); Z90.710 Acquired absence of both cervix and uterus
CPT/HCPCS: 36415; 80053; 85025

== ENCOUNTER 2024-08-30 01:58 | Emergency (ER) | payer OTHER, SELFPAY ==
--- NOTE | ~2024-08-30 | XR_ITS ---
EXAMINATION: XR CHEST CLINICAL INFORMATION: sob COMPARISON: January 09, 2022 TECHNIQUE: Frontal view of the chest was obtained. FINDINGS: The cardiomediastinal silhouette is stable. There is no focal lung consolidation or pleural effusions. The bony structures and the soft tissues are unremarkable. XR/XR chest 1V IMPRESSION: No acute cardiopulmonary process. Electronically signed by: Victor M Leonardo MD 08/30/2024 03:12 AM [facility] [place]
[2024-08-30 02:03] VITALS: BP 181/93; PULSE 68; O2SAT 98
[2024-08-30 02:16] VITALS: BP 142/77; PULSE 61; RESP 13; TEMP 36.6; O2SAT 98; BMI 24.1
--- NOTE | 2024-08-30 02:20 | ECG_ITS ---
Test Reason : HTN Blood Pressure : / mmHG Vent. Rate : 060 BPM Atrial Rate : 060 BPM P-R Int : 198 ms QRS Dur : 098 ms QT Int : 424 ms P-R-T Axes : 041 013 013 degrees QTc Int : 424 ms Normal sinus rhythm Nonspecific ST and T wave abnormality No significant changes when compared with the previous EKG of 01 march 2017 Referred By: Valery Eason Electronically Signed By:ELIA POLANCO
--- NOTE | 2024-08-30 02:21 | ED.GENADULT ---
HPI - General Adult General Chief complaint: Chest Pain Stated complaint: Hx ELIANA, SOB BP: 194/98 Time Seen by Provider: 08/30/24 02:11 Source: patient Mode of arrival: ambulatory Limitations: no limitations History of Present Illness ED Provider: Dr. Valery Eason HPI narrative: Patient comes to the emergency room complaining of high blood pressure. Patient states that every time that she has to travel to [place] and has family problems her blood pressure increases. Patient states that earlier today he will pressure was in the 190s, got scared, became short of breath, blood pressure got worse and then came to the emergency room. Patient states that she feels very anxious, denies chest pain or shortness of breath, no visual changes, no headache. Related Data Home Medications ?Medication ?Instructions ?Recorded ?Confirmed ketotifen fumarate 0.025 % (0.035 0 drp ophthalmic (eye) 03/21/23 07/04/23 %) eye drops loratadine 10 mg tablet 10 mg PO DAILY 03/21/23 07/04/23 metoprolol succinate 100 mg 100 mg PO QAM 03/21/23 07/04/23 tablet,extended release 24 hr multivitamin with folic acid 400 1 tab PO DAILY 03/21/23 07/04/23 mcg tablet (Daily-Brendan (with folic acid)) atorvastatin 20 mg tablet 20 mg PO DAILY 06/18/23 07/04/23 chlorthalidone 25 mg tablet 12.5 mg PO QAM 06/18/23 06/18/23 aripiprazole 2 mg tablet 2 mg PO DAILY 07/04/23 07/04/23 gabapentin 100 mg capsule 100 mg PO TID 07/04/23 07/04/23 liothyronine 25 mcg tablet 25 mcg PO DAILY 07/04/23 07/04/23 mirtazapine 15 mg tablet 15 mg PO BEDTIME 07/04/23 07/04/23 fluticasone propionate 50 1 spray intranasal DAILY 06/30/24 mcg/actuation nasal spray,suspension ipratropium 20 mcg-albuterol 100 1 puff inhalation QID 06/30/24 mcg/actuation mist for inhalation (Combivent Respimat) Previous Rx's ?Medication ?Instructions ?Recorded docusate sodium 100 mg capsule 200 mg (2 x 100 mg) PO BEDTIME #60 07/04/23 (Colace) caps hydrocortisone 2.5 % topical cream 1 appl IN BEDTIME PRN hemorrhoids 07/04/23 with perineal applicator #30 grams (Proctosol HC) hydrocortisone 2.5 % topical cream 1 appl IN BEDTIME PRN hemorrhoids 07/04/23 with perineal applicator 30 days #30 grams (Proctosol HC) methylcellulose (laxative) 500 mg 500 mg PO TID #90 tabs 07/04/23 tablet (Citrucel) polyethylene glycol 3350 17 17 g PO DAILY PRN constipation 07/04/23 gram/dose oral powder (Miralax) #510 grams albuterol 90 mcg-budesonide 80 2 inh inhalation TID PRN shortness 06/30/24 mcg/actuation HFA aerosol inhaler of breath #1 ea (Airsupra) fluticasone furoate 200 1 inh inhalation DAILY #60 ea 06/30/24 mcg-vilanterol 25 mcg/dose inhalation powder (Breo Ellipta) Allergies Allergy/AdvReac Type Severity Reaction Status Date / Time cat dander [CAT] Allergy Intermediate EYES SWELL Verified 08/30/24 02:22 UP, CAUSES ASTHMA TO ACT UP dog dander [DOG] Allergy Intermediate EYES Verified 08/30/24 02:22 SWELL, CAUSES ASTHMA TO ACT UP Horse/Equine Containing Allergy Intermediate EYES Verified 08/30/24 02:22 Products SWELL, [HORSE/EQUINE CONTAINING ASTHMA PRODUCTS] EXACERBATION pollen extracts [POLLEN] Allergy Intermediate CAUSED Verified 08/30/24 02:22 ASTHMA TO ACT UP DUST Allergy Intermediate EYES Uncoded 08/30/24 02:22 SWELL, CAUSES ASTHMA TO ACT UP Review of Systems Review of Systems: Constitutional : No Weight loss, No Fever, No Chills, No Night Sweats, No Fatigue, No Malaise ENT/Mouth : No Hearing loss, No Ear Pain, No Nasal Congestion, No Sinus Pain, No Hoarseness, No sore throat, No Rhinorrhea, No Swallowing Difficulty Eyes: No Eye Pain, No Swelling, No Redness, No Foreign Body, No Discharge, No Vision Changes Cardiovascular : Complaining of high blood pressure, No Chest Pain, complaining of shortness of breath with anxiety, No Dyspnea on Exertion, No Orthopnea, No Edema, No Palpitations Respiratory : No Cough, No Sputum, No Wheezing, No Smoke Exposure, No Dyspnea Gastrointestinal : No Nausea, No Vomiting, No Diarrhea, No Constipation, No abdominal Pain, No Hematochezia, No Melena Genitourinary : no irregular bleeding, No Dysuria, No Urinary Frequency, No Hematuria, No Urinary Incontinence, No Urgency, No Flank Pain, No Urinary Flow Changes, No Hesitancy Musculoskeletal : No joint pain, No Myalgias, No Joint Swelling Skin : No Skin Lesions, No rash Neuro : No Weakness, No Numbness, No Paresthesias, No Loss of Consciousness, No Dizziness, No Headache Psych : Complaining of anxiety, denies depression SI or HI, Heme/Lymph: No Bruising, No Bleeding,No Lymphadenopathy Endocrine : No Polyuria, No Polydipsia, No Temperature Intolerance [facility] Past Medical History Medical History Venous insufficiency Ductal carcinoma in situ (DCIS) of right breast HTN (hypertension) Surgical History Hx of colonoscopy Hx of hysterectomy Hx of right mastectomy Social History Social History Household Members: None Alcohol intake: current Alcohol intake frequency: a few times a month Patient Tobacco Use Status: Never used Tobacco Smoked in Last 30 Days: No Use of substances other than those prescribed or required for medical reasons: No Advance Directives: No Advance Directives Information Provided: Yes Physical Exam ED Vital Signs: Vital Signs - 24 hr 08/30/24 02:16 Temperature 97.9 F Pulse Rate 61 Respiratory Rate 13 Blood Pressure 142/77 H Pulse Oximetry 98 Oxygen Delivery Method Room Air BMI result Body Mass Index 24.1 Const Other: Appearance: Alert. Oriented X3. No acute distress. Eyes: Pupils equal, round and reactive to light. ENT: Pharynx normal. Neck: Normal inspection. Neck supple. No lymph nodes noted. No crepitus CVS: Normal heart rate and rhythm. Pulses normal. Normal S1 and S2 Respiratory: No respiratory distress. Breath sounds normal. No Wheezing. No rales Abdomen: Soft and nontender. No rigidity. No distention. Skin: Skin warm and dry. Normal skin color. Normal skin turgor. Extremities: No lower extremity edema. No Lacerations. No Rash Neuro: Oriented X 3. No motor deficit. No sensory deficit. Moving all extremities. No slurred speech. CN 2 through 12 grossly intact Psych: calm, cooperative, seems anxious Course Course Course Narrative: On arrival, patient's blood pressure in the 150s systolic. Otherwise asymptomatic Patient complaining of feeling anxious, patient given 1 dose of p.o. Ativan EKG and labs pending Medications Administered Discontinued Medications Generic Name Dose Route Start Last Admin Trade Name Farnaz PRN Reason Stop Dose Admin Lorazepam 1 mg 08/30/24 02:22 08/30/24 02:42 Lorazepam 1 Mg Tablet PO 08/30/24 02:23 1 mg ONCE ONE Administration Medical Decision Making Medical Decision Making [facility] Narrative: My interpretation of labs, normal hematology and chemistry, troponin negative -patient was given a dose of p.o. Ativan, patient feeling better. Blood pressure improved to 142/77. -discussed with the patient that she likely has elevated blood pressure due to anxiety. After the medication her blood pressure nearly normalized. Patient feeling much better. Differential Diagnosis Differential Diagnoses: The differential diagnosis associated with the presentation includes (Hypertensive urgency, anxiety, chronic hypertension) Admission/Observation Consideration of admission/observation: Escalation of care including admission/observation considered (Given patient's elevated blood pressure and history, observation was considered) Lab Data [facility] Lab Attestation statement: I reviewed the patient's lab results. 08/30/24 02:47 08/30/24 02:47 Labs: Lab Results 08/30/24 Range/Units 02:47 WBC 8.3 (4.8-10.8) X10*3/uL RBC 4.88 (4.20-5.50) X10*6/uL Hgb 14.5 (12.0-16.0) g/dl Hct 42.3 (37.0-47.0) % MCV 86.7 (80.0-98.0) fL MCH 29.7 (27.0-33.0) pg MCHC 34.3 (31.0-35.0) g/dl RDW 13.4 (11.0-16.0) % Plt Count 308 (160-400) X10*3/uL MPV 10.4 (9.4-12.3) fL Immature Gran % (Auto) 0.2 (0.0-0.4) % Neut % (Auto) 56.1 (45-73) % Lymph % (Auto) 36.4 (20-40) % [place] % (Auto) 5.7 (2-11) % Eos % (Auto) 1.1 (0-4) % Baso % (Auto) 0.5 (0-2) % Lymph # (Auto) 3.0 (1.2-4.9) X10*3/uL [place] # (Auto) 0.5 (0.1-1.2) X10*3/uL Eos # (Auto) 0.1 (0.0-0.4) X10*3/uL Baso # (Auto) 0.0 (0.0-0.2) X10*3/uL Abs Immat Gran (auto) 0.02 (0.00-0.03) X10*3/uL Absolute Neuts (auto) 4.7 (2.0-8.3) x10*3/uL Absolute Nucleated RBC 0.000 (0.0-0.012) X10*3/uL Nucleated RBC % (auto) 0.0 (0.0-0.2) /100WBC Sodium 141 (135-145) mmol/L Potassium 4.1 (3.3-5.1) mmol/L Chloride 103 (96-108) mmol/L Carbon Dioxide 28 (22-29) mmol/L Anion Gap 14 (12-20) BUN 13 (9-16) mg/dL Creatinine 0.85 (0.5-1.4) mg/dL Estim Creat Clear Calc 53.1 Estimated GFR > 60 Random Glucose 106 (60-115) mg/dL Calcium 9.7 (8.4-10.2) mg/dL Troponin I High Sens < 2.7 (<3.5-17.0) ng/L Independent Interpretation I performed an independent interpretation of an: EKG (Normal sinus rhythm, heart rate 60, no ST segment depression or elevation, nonspecific T-wave inversion in lead 3, QTC 424) Discharge Plan Discharge Clinical Impression: Anxiety, Hypertension Patient Disposition: Home, Self-Care Instructions: Anxiety (ED), Chronic Hypertension (ED) Additional Instructions: Please follow-up with your primary care physician tomorrow. If you have any worsening or new symptoms, please return to the emergency room or call 911 Prescriptions: No Action atorvastatin 20 mg tablet 20 mg PO DAILY chlorthalidone 25 mg tablet 12.5 mg PO QAM multivitamin with folic acid [Daily-Brendan (with folic acid)] 400 mcg tablet 1 tab PO DAILY loratadine 10 mg tablet 10 mg PO DAILY metoprolol succinate 100 mg tablet extended release 24 hr 100 mg PO QAM ketotifen fumarate 0.025 % (0.035 %) drops 0 drp ophthalmic (eye) fluticasone propionate 50 mcg/actuation spray,suspension 1 spray intranasal DAILY Combivent Respimat 20-100 mcg/actuation mist 1 puff inhalation QID fluticasone furoate-vilanterol [Breo Ellipta] 200-25 mcg/dose blister with device 1 inh inhalation DAILY Qty: 60 6RF Airsupra 90-80 mcg/actuation HFA aerosol inhaler 2 inh inhalation TID PRN (Reason: shortness of breath) Qty: 1 3RF gabapentin 100 mg capsule 100 mg PO TID mirtazapine 15 mg tablet 15 mg PO BEDTIME liothyronine 25 mcg tablet 25 mcg PO DAILY aripiprazole 2 mg tablet 2 mg PO DAILY Citrucel 500 mg tablet 500 mg PO TID Qty: 90 5RF docusate sodium [Colace] 100 mg capsule 200 mg PO BEDTIME Qty: 60 5RF polyethylene glycol 3350 [Miralax] 17 gram/dose powder 17 g PO DAILY PRN (Reason: constipation) Qty: 510 6RF hydrocortisone [Proctosol HC] 2.5 % cream with perineal applicator 1 appl IN BEDTIME PRN (Reason: hemorrhoids) Qty: 30 3RF hydrocortisone [Proctosol HC] 2.5 % cream with perineal applicator 1 appl IN BEDTIME PRN (Reason: hemorrhoids) 30 Days Qty: 30 3RF Print Language: Jordanian
[2024-08-30] MEDS: LORazepam 1 MG TABLET PO (02:42)
[2024-08-30 02:51] LABS: MANUAL DIFF FLAG NO
[2024-08-30 02:53] LABS: Basophils Percent Auto 0.5 % (0-2); Eosinophils Absolute Auto 0.1 X10*3/uL (0.0-0.4); Eosinophils Percent Auto 1.1 % (0-4); Hematocrit 42.3 % (37.0-47.0); Hemoglobin 14.5 g/dl (12.0-16.0); Imm Gran Abs Auto 0.02 X10*3/uL (0.00-0.03); Imm Gran Pct Auto 0.2 % (0.0-0.4); Lymphocytes Percent Auto 36.4 % (20-40); Mean Corpuscular HGB Conc 34.3 g/dl (31.0-35.0); Mean Corpuscular Hemoglobin 29.7 pg (27.0-33.0); Mean Corpuscular Volume 86.7 fL (80.0-98.0); Mean Platelet Volume 10.4 fL (9.4-12.3); Monocytes Absolute Auto 0.5 X10*3/uL (0.1-1.2); Monocytes Percent Auto 5.7 % (2-11); Neutrophils Absolute Auto 4.7 x10*3/uL (2.0-8.3); Neutrophils Percent Auto 56.1 % (45-73); Platelet Count 308 X10*3/uL (160-400); Red Blood Count 4.88 X10*6/uL (4.20-5.50); Red Cell Distribution Width 13.4 % (11.0-16.0); White Blood Count 8.3 X10*3/uL (4.8-10.8)
[2024-08-30 03:06] LABS: Anion Gap 14 (12-20); Blood Urea Nitrogen 13 mg/dL (9-16); Calcium 9.7 mg/dL (8.4-10.2); Carbon Dioxide 28 mmol/L (22-29); Chloride 103 mmol/L (96-108); Creatinine Clr Calc Pharmacy 53.1; Estimated Glomerular Filt Rate > 60; Glucose Random 106 mg/dL (60-115); Potassium 4.1 mmol/L (3.3-5.1); Sodium 141 mmol/L (135-145)
[2024-08-30 03:19] LABS: Troponin-I High Sensitivity < 2.7 ng/L (<3.5-17.0)
[2024-08-30 04:44] VITALS: BP 146/80; PULSE 60; RESP 18; TEMP 36.5; O2SAT 99
[2024-08-30 05:23] VITALS: BP 146/80; PULSE 60; RESP 18; TEMP 36.5; O2SAT 99
== END 2024-08-30 05:23 | disposition home or self-care (01) ==
PROVIDERS: Emergency Provider Emergency Medicine
DX: R07.89 Other chest pain (principal); F41.1 Generalized anxiety disorder; F43.0 Acute stress reaction; I10 Essential (primary) hypertension; Z79.899 Other long term (current) drug therapy
CPT/HCPCS: 36415; 71045; 80048; 84484; 85025; 93005; 99284; 99285

== ENCOUNTER → 2024-08-30 02:20 | Outpatient (BNV) | payer OTHER, SELFPAY | PROVIDERS: Emergency Provider Emergency Medicine; Visit Provider Internal Medicine | DX: I10 Essential (primary) hypertension (principal) | CPT/HCPCS: 93010 ==

== ENCOUNTER 2025-03-02 13:11 | Outpatient (REF) | payer OTHER, SELFPAY ==
[2025-03-02 17:25] LABS: Anion Gap 12 (12-20); Blood Urea Nitrogen 19 mg/dL (9-16); Calcium 9.3 mg/dL (8.4-10.2); Carbon Dioxide 28 mmol/L (22-29); Chloride 105 mmol/L (96-108); Estimated Glomerular Filt Rate > 60; Glucose Random 97 mg/dL (60-115); Potassium 3.6 mmol/L (3.3-5.1); Sodium 141 mmol/L (135-145)
== END 2025-03-02 13:12 | disposition home or self-care (01) ==
LOC: HO.HHCL 13:11
PROVIDERS: Visit Provider Internal Medicine Geriatric Medicine
DX: I10 Essential (primary) hypertension (principal)
CPT/HCPCS: 36415; 80048

== ENCOUNTER 2025-04-13 14:19 | Outpatient (REF) | payer OTHER, SELFPAY ==
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
[2025-04-13 16:43] LABS: Cholesterol 210 mg/dL (<200); HDL Cholesterol 40 mg/dL (>40); Triglycerides 266 mg/dL (<150)
[2025-04-13 16:52] LABS: B Type Natriuretic Peptide < 10 pg/mL (<100)
== END 2025-04-13 14:20 | disposition home or self-care (01) ==
LOC: HO.HHCL 14:19
PROVIDERS: PCP Internal Medicine Geriatric Medicine; Visit Provider Internal Medicine Cardiovascular Disease
DX: R06.02 Shortness of breath (principal); E78.5 Hyperlipidemia, unspecified
CPT/HCPCS: 36415; 80061; 83880

== ENCOUNTER → 2025-04-15 13:30 | Outpatient (BNV) | payer OTHER, SELFPAY | PROVIDERS: PCP Internal Medicine Geriatric Medicine; Visit Provider Radiology Diagnostic Radiology | DX: E28.39 Other primary ovarian failure (principal) | CPT/HCPCS: 77080 ==

== ENCOUNTER 2025-04-15 13:33 | Outpatient (REF) | payer OTHER, SELFPAY ==
--- NOTE | ~2025-04-15 | MM_ITS ---
EXAMINATION: DXA BONE DENSITY AXIAL HISTORY: osteopenia TECHNIQUE: [employer] Dual energy absorptiometry (DEXA) of the lumbar spine, total left hip, and femoral neck was performed. COMPARISON: Comparison is made with the prior examination dated 12/28/2009. FINDINGS: The bone mineral density of the lumbar spine is 0.978 g/cm2, corresponding to a T-score of -1.7, and a Z-score of 0.0. This is indicative of osteopenia. This represents a BMD change of -12.8% compared to the prior exam. This is statistically significant. The bone mineral density of the left total hip is 0.841 g/cm2, corresponding to a T-score of -1.3, and a Z-score of 0.1. This is indicative of osteopenia. This represents a BMD change of -10.1% compared to the prior exam. This is statistically significant. The bone mineral density of the left femoral neck is 0.787 g/cm2, corresponding to a T-score of -1.8, and a Z-score of -0.2. This is indicative of osteopenia. This represents a BMD change of -8.5% compared to the prior exam. FRACTURE RISK: The FRAX index suggests a ten year probability of major osteoporotic fracture of 9.8%, and of hip fracture 1.5%. MM/XR DEXA axial skeleton IMPRESSION: Based on bone mineral density, and according to World Health Organization (WHO) criteria, the diagnosis is consistent with osteopenia. Statistically, 68% of repeat scans fall within 1 SD (+/- 0.010 g/cm2 for AP spine L1-L4) and 1 SD (+/- 0.012 g/cm2 for femur total) FRAX is a trademark of the [employer]'s [place] for Metabolic Bone Disease, a World Health Organization (WHO) Collaborating Center. Electronically signed by: Evans Torres MD 04/15/2025 02:02 PM EDT
--- NOTE | ~2025-04-15 | MM_ITS ---
EXAMINATION: MM SCREENING DIGITAL BREAST TOMOSYNTHESIS, LEFT CLINICAL INFORMATION: Screening. Asymptomatic. Right mastectomy. COMPARISON: Mammography: Comparison is made with relevant avialable priors. TECHNIQUE: Digital mammography is performed in craniocaudal and mediolateral oblique views along with computer-aided detection (CAD). Digital breast tomosynthesis is performed in implant-displaced craniocaudal and implant-displaced mediolateral oblique views along with computer-aided detection (CAD). FINDINGS: There are scattered areas of fibroglandular density (ACR BI-RADS breast composition Category b). Retropectoral silicone implant is stable appearing. There are no significant masses, abnormal calcifications, or other abnormalities. MM/MM tomosynthesis screen imp LT IMPRESSION: There are no significant changes from prior study. ASSESSMENT: BI-RADS BI-RADS 2 - Benign Findings RECOMMENDATION: Routine annual mammography screening. 1 year F/U This patient's information was entered into a reminder system with a target due date for their next mammogram. Electronically signed by: Bebe Araiza DO 04/26/2025 04:30 PM EDT
--- OUTSIDE RECORDS SUMMARY | 2025-04-15 14:09 | XMS_ITS | Data Portability ---
Author Organization [place] - [facility] Address [address] [place] [phone] Care Team Providers Care Lawyer Criminal Name Role Phone NAME, HARJEET Primary Care [...] By Organization Details Last Modified Time 01/19/2021 [id number] aprenda acerca d e sumi (reposo, hielo, [...] today. We discussed RICE therapy and a dominican version of instructions was supplied this visit. continue to use your sling for comfort, take previously prescribed Vicodin as instructed and utilize your Lidocaine patches as instructed. Thank you for your visit with [facility] today. We cannot always find the exact [...] condition between 8am-10pm, please call [facility] at [phone] to help navigate your care. Not available [...] mastectomy incision completed Licha Kumar, MAINOR [address], [place], [address], [place] [facility] 01/19/2021 14:35:28 Imaging Results [...] [degF] 18 /min 130/90 mm[Hg] Not Available [facility] 14:34:39 Social History Question Answer Notes LastModified by Organizat ion Details LastModified Time Tobacco Smoking Status Never Smoker Licha Kumar NP [address], [place], [address], [place] [facility] 01/19/2021 14:33:26 Do You [...] Visiting Friends Or Family Or Going To [employer] Or Club Meetings) 1 Or 2 Times [...] available 01/19 14:33:22 Medical History Condition Response Coronary Artery Disease N COPD N Depression Y Diabetes N Cancer Y Stroke N Asthma Y High Cholesterol N Pulmonary Embolism N Hypertension Y Kidney Disease N Gynecological HistoryNo gynecological history recorded. Obstetrics History GPAL:G 0 P 0 0 0 0 Past Encounters Encounter ID Performer Location Encounter Start Date Encounter Closed Date Diagnosis/Indication Diagnosis SNOMED-CT Code Diagnosis ICD10 Code Diagnosis Note [id number] Licha Kumar NP [address] [place] [id number] 01/19/2021 14:23:57 01/25/2021 10:33:34 Pain of left shoulder joint [id number] M25.512 Overview/H istory: Patient is a 65 [...] spoke with [facility] Coordin[facility] to ascertain DH expectatio n this visit as patient is awaiting [facility]at [facility] for orthopedic referral presently. Ena Mcguire would [...] completed. Discussed RICE therapy, provided literature in dominican. Patient is able to reiterate current pain [...] after care of this patient according to [facility]'s infection prevention protocols. In order to obtain [...] Gilman Member ID Guarantor Name 01/20/2021 1 [place] [facility] Catherine Larry Bertrand [id number] Catherine Larry Bertrand 01/19/2021 1 *SELF PAY* Catherine Larry Bertrand [id number] Catherine Larry Bertrand 01/20/2021 1 [place] [facility] (MEDICAID) Catherine Bertrand [id number] Catherine Larry Bertarnd Notes Date Note Type Note Provider Name and Address Organization Details Recorded Time 01/19/2021 text/html Patiente is a 65 year old alert patient who is strictly Peruvian speaking. Patient presents with chief complaint of [...] allergies and GERD. Licha Kumar, MAINOR [address] [place], [address], [place] [facility] 01/19/2021 15:30:32 OBGyn Episode No OBEpisode recorded.
== END 2025-04-15 13:34 | disposition home or self-care (01) ==
LOC: HO.MAMMO 13:33
PROVIDERS: PCP Internal Medicine Geriatric Medicine; Visit Provider Internal Medicine Geriatric Medicine
DX: M85.89 Other specified disorders of bone density and structure, multiple sites (principal); Z12.31 Encounter for screening mammogram for malignant neoplasm of breast
CPT/HCPCS: 77067; 77080

== ENCOUNTER 2025-04-20 13:35 | Outpatient (REF) | payer OTHER, SELFPAY ==
--- NOTE | ~2025-04-20 | XR_ITS ---
EXAMINATION: XR SHOULDER 2 OR MORE VIEWS RIGHT HISTORY: Chronic right shoulder pain COMPARISON: Comparison is made with the prior examination dated 05/11/2022. FINDINGS: Four views of the right shoulder are submitted. Osseous mineralization is normal. There is no fracture or dislocation. The glenohumeral joint is maintained. There is mild osteoarthritis of the AC joint. The soft tissues are unremarkable. XR/XR shoulder RT min 2V IMPRESSION: Mild osteoarthritis of the AC joint. Electronically signed by: Evans Torres MD 04/20/2025 02:34 PM EDT
--- NOTE | ~2025-04-20 | XR_ITS ---
EXAMINATION: XR KNEE, LEFT CLINICAL INFORMATION: Chronic left knee pain COMPARISON: January 09, 2022. TECHNIQUE: AP lateral and sunrise views. . FINDINGS: No acute cortical disruption or malalignment. No lytic or blastic lesions. No suprapatellar bursa joint effusion. Mild asymmetric joint space narrowing involving mostly the medial compartment with sclerosis and the articular surface of the medial tibial plateau. XR/XR knee LT 3V IMPRESSION: Mild medial compartment osteoarthrosis. No gross change. Electronically signed by: Grant Agudelo MD 04/20/2025 02:35 PM EDT
--- OUTSIDE RECORDS SUMMARY | 2025-04-20 14:46 | XMS_ITS | Encounter Summary ---
Author Organization [employer] Address [address] [place] [address] [address] [place] [address] Care Team Providers Care Accountant Supervisor Name Role Phone Name, Orlando DUBOSE Primary Care Provider [phone] Encounter Details Date Type Department Care Team ([facility] st Contact Info) Description 10/11/2022 Abstract [facility] [address] [place], [place] [id number] Name, MD Orlando [address] [place] [address] Social History Tobacco Use Types Packs/Day Years Used Date Smoking Tobacco: Never Smokeless Tobacco: Never Depression Answer Date Recorded Patient Health Questionnaire-9 Score 0 10/11/2022 Depression Answer Date Recorded Patient Health Questionnaire-2 Score 0 10/11/2022 Comments Unknown Sex and Gender Information Value Date Recorded Sex Assigned at Female 07/30/2022 10:15 AM EDT Legal Sex Female 10:15 AM EDT Gender Identity Female 07/30/2022 10:15 AM EDT Sexual Orientation Straight 07/30/2022 10 :15 AM EDT COVID-19 Exposure Response Date Recorded In the last 10 days, have yo u been in contact with someone who was confirmed or suspected to have Coronavirus/COVID-19? No / Unsure 10/11/2022 2:24 PM EST documented as of this encounter Functional Status * Over the past 2 weeks, how often have you been bothered by any of the following problems? Question Answer Date of Assessment Author Little interest or pleasure in doing things Not at all 10/11/2022 2:48 PM EST Vaelry Collins MA Feeling down, depressed, or hopeless Not at all 10/11/2022 2:48 PM Valery Ledbetter MA Patient Health Questionnaire -2 Score 0 10/11/2022 2:48 PM Valery Ledbetter MA * Over the past 2 weeks, how often have you been bothered by any of the following problems? Question Answer Date of Assessment Author Trouble falling or staying asleep, or sleeping too much Not at all 10/11/2022 2:48 PM Valery Ledbetter MA Feeling tired or having nick le energy Not at all 10/11/2022 2:48 PM Valery Ledbetter MA Poor appetite or overeating Not at all 10/11/2022 2: 48 PM Valery Ledbetter MA Feeling bad about yourself - or that you are a failure or have let yourself or your family down Not at all 10/11/2022 2:48 PM Valery Ledbetter MA Trouble concentrating on things, such as reading the newspaper or watching television Not at all 10/11/2022 2:48 PM Valery Ledbetter MA Moving or speaking so slowly that other people could have noticed? Or the opposite - being so fidgety or restless that you have been moving around a lot more than usual. Not at all 10/11/2022 2:48 PM Valery Ledbetter MA Thoughts that you would be better off or hurting yourself in some way Not at all 10/11/2022 2:48 PM Valery Ledbetter MA Patient Health Questionnaire -9 Score 0 10/11/2022 2:48 PM Valery Ledbetter MA documented as of this encounter Plan of Treatment Not on file documented as of this encounter Visit Diagnoses Not on filedocumented in this encounter Additional Health Concerns Assessment Noted Time PHQ-9 Depression Total Score: 0 10/11/19 23 2:48 PM EST documented as of this encounter Care Teams Accountant Supervisor Relationship Specialty Start Date End Date Name, MD Orlando [address] [place] [address] PCP - General Family Medicine 04/04/16 documented as of this encounter
== END 2025-04-20 13:36 | disposition home or self-care (01) ==
LOC: HO.XRAY 13:35
PROVIDERS: PCP Internal Medicine Geriatric Medicine; Visit Provider Internal Medicine Geriatric Medicine
DX: M25.562 Pain in left knee (principal); G89.29 Other chronic pain; M25.511 Pain in right shoulder; J45.909 Unspecified asthma, uncomplicated; Z91.09 Other allergy status, other than to drugs and biological substances
CPT/HCPCS: 73030; 73562; 99212

== ENCOUNTER 2025-04-20 13:42 | Outpatient (AMB) | payer OTHER, SELFPAY ==
[2025-04-20 13:43] VITALS: BP 102/62; PULSE 58; O2SAT 98; BMI 23.9
--- NOTE | 2025-04-20 13:43 | MHC.OFFVIS ---
Vital Signs 04/20/25 13:43 Height 5 ft 3 in Weight 135 lb BMI 23.9 BP 102/62 Blood Pressure Location Rt brachial Position Sitting Pulse 58 Pulse Source Pulse Oximeter Pulse Oximetry (%) 98 Oxygen Delivery Method Room Air Intake Visit Reasons: COPD Forestry Extension Specialist Required: Yes Forestry Extension Specialist Name: Yanira Salguero Anjelica Allergies cat dander (CAT) Allergy (Intermediate, Verified 04/20/25 13:48) EYES SWELL UP, CAUSES ASTHMA TO ACT UP dog dander (DOG) Allergy (Intermediate, Verified 04/20/25 13:48) EYES SWELL, CAUSES ASTHMA TO ACT UP Horse/Equine Containing Products (HORSE/EQUINE CONTAINING PRODUCTS) Allergy (Intermediate, Verified 04/20/25 13:48) EYES SWELL, ASTHMA EXACERBATION pollen extracts (POLLEN) Allergy (Intermediate, Verified 04/20/25 13:48) CAUSED ASTHMA TO ACT UP DUST Allergy (Intermediate, Uncoded 08/30/24 02:22) EYES SWELL, CAUSES ASTHMA TO ACT UP HPI HPI COPD: Details: 69-year-old lady, nonsmoker, followed for asthma and environmental allergies. Her symptoms are now well controlled on Breo, supra, loratadine, and nasal fluticasone. She denies recent exacerbations. [facility] Medical History Venous insufficiency Ductal carcinoma in situ (DCIS) of right breast HTN (hypertension) Surgical History Hx of colonoscopy Hx of hysterectomy Hx of right mastectomy Social History Household Members: None Alcohol intake: current Alcohol intake frequency: a few times a month Patient Tobacco Use Status: Never used Tobacco Review of Systems Const Denies daytime sleepiness, Denies excessive sweating, Denies fatigue, Denies fever(s), Denies lethargy, Denies malaise, Denies night sweats, Denies snoring and Denies weight loss Eyes Denies blurry vision and Denies itchy eyes ENT Denies nasal congestion, Denies post nasal drip, Denies sinus pain, Denies sinus pressure and Denies other ( Thrush) Card Denies chest pain, Denies pedal edema, Denies dyspnea, Denies orthopnea and Denies paroxysmal nocturnal dyspnea Resp Denies cough, Denies hemoptysis, Denies excessive phlegm production, Denies dyspnea, Denies snoring and Denies wheezing GI Denies abdominal pain and Denies heartburn Musc Denies myalgias, Denies arthralgias and Denies joint swelling Skin/Breast Denies rash Neuro Denies memory loss and Denies seizure-like activity Psych Denies abnormal sleep pattern, Denies anxiety and Denies memory loss Endo Denies excessive sweating, Denies fatigue and Denies heat intolerance Williams/Lymph Denies easy bruising Aller/Immun Denies itchy eyes, Denies seasonal rhinorrhea and Denies wheezing Physical Exam Vital Signs: Last Vital Signs Pulse 58 04/20/25 13:43 BP 102/62 04/20/25 13:43 Pulse Ox 98 04/20/25 13:43 Oxygen Delivery Method Room Air 04/20/25 13:43 BMI result Body Mass Index 23.9 Const General: no acute distress and alert Nutritional Appearance: not obese Orientation/consciousness: Other orientation findings ( oriented) HEENT Head: Yes atraumatic Eyes General: appearance normal, both eyes and all related structures Sclerae: sclerae normal EOM: EOMs intact bilaterally Neck Neck: Yes supple Lymphatic: no lymphadenopathy noted Resp Effort & Inspection: normal respiratory effort and no use of accessory muscles Auscultation: clear to auscultation bilaterally Cardio Rate: regular rate Rhythm: regular rhythm Heart sounds: no gallops, no murmurs and no rubs Skin General skin exam: other ( warm) Extrem General: No clubbing, No cyanosis and No edema Assessment & Plan Assessment & Plan (1) Asthma: Code(s): J45.909 - Unspecified asthma, uncomplicated Category: Medical Plan: Well controlled on Breo and air supra. Continue current regimen. (2) Environmental allergies: Code(s): Z91.09 - Other allergy status, other than to drugs and biological substances Category: Medical Plan: Well controlled on Flonase and loratadine. Continue current regimen. Coding Level of Care Code Est Pt Level 4 (96816) Diagnoses Asthma J45.909 Environmental allergies Z91.09
== END 2025-04-20 13:57 | disposition home or self-care (01) ==
LOC: HO.HPS 13:43
PROVIDERS: PCP Internal Medicine Geriatric Medicine; Visit Provider Internal Medicine Pulmonary Disease
DX: J45.909 Unspecified asthma, uncomplicated (principal); Z91.09 Other allergy status, other than to drugs and biological substances
CPT/HCPCS: 99214

== ENCOUNTER → 2025-04-20 14:04 | Outpatient (BNV) | payer OTHER, SELFPAY | PROVIDERS: PCP Internal Medicine Geriatric Medicine; Visit Provider Radiology Diagnostic Radiology | DX: M17.12 Unilateral primary osteoarthritis, left knee (principal); M19.011 Primary osteoarthritis, right shoulder | CPT/HCPCS: 73030; 73562 ==